=== PATIENT | male | born 1955 | race Caucasian/White ===

== ENCOUNTER 2020-10-15 06:48 | Outpatient (CLI) | payer MEDICARE ==
[~2020-10-15] VITALS: Ht 180.3 cm; Wt 75.0 kg
[2020-10-15] VITALS (8 sets, daily range): BP systolic 60–133; BP diastolic 41–80
[~2020-10-15 06:48] MED LIST: METF500T16 PO; POLY17PO29 PO; TRAM-48 PO
[2020-10-15] MEDS ORDERED: IODIXANOL 320 MG/ML 100 ML VIAL. ONE (07:38)
[2020-10-15] MEDS ORDERED: LIDOCAINE 1% PF 2 ML VIAL. ONE (07:38)
[2020-10-15 08:02] LABS: CALCIUM 9.4 mg/dL (8.5-10.1); CREATININE 1.3 mg/dL (0.7-1.3); GFR 55.8; POTASSIUM 3.9 mmol/L (3.5-5.1)
[2020-10-15 08:08] LABS: BASO # 0.1 x10^3/uL (0.0-0.2); BASO % 1 % (0-3); EOS # 0.2 x10^3/uL (0.0-0.7); EOS % 2 % (0-3); HEMATOCRIT 52.3 % (39.0-53.0); HEMOGLOBIN 17.2 g/dL (13.0-17.5); LYMPH # 2.5 x10^3/uL (1.0-4.8); LYMPH % 27 % (24-48); MEAN CORPUSCULAR HEMOGLOBIN 31 pg (25-35); MEAN CORPUSCULAR HGB CONC 33 g/dL (31-37); MEAN CORPUSCULAR VOLUME 95 fL (79-100); MONO # 0.9 x10^3/uL (0.0-1.1); MONO % 10 % (0-9); NEUT # 5.7 x10^3/uL (1.8-7.7); NEUT % 60 % (31-73); PLATELET COUNT 242 x10^3/uL (140-400); RED BLOOD COUNT 5.51 x10^6/uL (4.30-5.70); RED CELL DISTRIBUTION WIDTH 13.2 % (11.5-14.5); WHITE BLOOD COUNT 9.4 x10^3/uL (4.0-11.0)
[2020-10-15 08:17] LABS: PROTHROMBIN TIME PATIENT 17.4 SEC (11.7-14.0)
[2020-10-15] MEDS ORDERED: HEPARIN for IV BOLUS 10,000 UNIT/10 ML VIAL. ONE (08:51)
[2020-10-15] MEDS ORDERED: VERAPAMIL 5 MG/2 ML VIAL. ONE (08:51)
[2020-10-15] MEDS ORDERED: MIDAZOLAM HCL/PF 5 MG/5 ML VIAL. ONE (08:51)
[2020-10-15] MEDS ORDERED: fentaNYL PF VIAL 100 MCG/2 ML VIAL ONE (08:51)
[2020-10-15] MEDS ORDERED: NITROGLYCERIN 200 MCG/2 ML SYRINGE FOR CATH/VASC LAB. ONE (08:51)
--- NOTE | 2020-10-15 08:52 | PDOC ---
MODERATE SEDATION ASSESSMENT RISKS/ALTERNATIVES Risks/Alternatives Risks and alternatives of this type of sedation and procedure discussed with: RISK/ALTERNATIVES: Patient H & P ON CHART H & P H & P on chart and reviewed for co-morbid conditions and appropriate labs. H&P ON CHART: Yes STATUS PREG STATUS ASSESSED: N/A MEDS/ALLERGIES REVIEWED Meds/Allergies Reviewed Medications and Allergies including time and route of recently administered narcotics and sedatives. MEDS/ALLERGIES REVIEWED: Yes ASA RATING ASA RATING: III AIRWAY ASSESSMENT Airway Assessment Airway patency, oral function limitations, presence of caps, crowns, dentures, partials, and ability to extend neck assessed. AIRWAY ASSESSMENT: Yes MALLAMPATI SCORE MALLAMPATI SCORE: II PRE-SEDATION ASSESSMENT PRE-SEDATION ASSESSMENT: Yes JESÚS AVLARADO MD Oct 15, 2020 08:52
[2020-10-15] MEDS ORDERED: IODIXANOL 320 MG/ML 100 ML VIAL. IART ONE (09:15)
[2020-10-15] MEDS ORDERED: MIDAZOLAM HCL/PF 5 MG/5 ML VIAL. IV ONE (09:15)
[2020-10-15] MEDS ORDERED: NITROGLYCERIN 200 MCG/2 ML SYRINGE FOR CATH/VASC LAB. IART ONE (09:15)
[2020-10-15] MEDS ORDERED: fentaNYL PF VIAL 100 MCG/2 ML VIAL IV ONE (09:15)
[2020-10-15] MEDS ORDERED: LIDOCAINE 1% PF 2 ML VIAL. INJ ONE (09:15)
[2020-10-15] MEDS ORDERED: HEPARIN for IV BOLUS 10,000 UNIT/10 ML VIAL. IART ONE (09:15)
[2020-10-15] MEDS ORDERED: VERAPAMIL 5 MG/2 ML VIAL. IART ONE (09:15)
[2020-10-15] MEDS ORDERED: IV 1/2 NORMAL SALINE 1,000 ML IV SCH (09:30)
[2020-10-15] MEDS ORDERED: CONTRAST GIVEN. MC PRN (09:30)
--- NOTE | 2020-10-15 09:55 | CARD ---
MR#: [id number] Date of Study: 10/15/2020 Ordering Physician: JESÚS STEINER, Referring Physician: JESÚS STEINER, Tech: RT Simone(R) APPROVED REPORT Technologist: RT Simone(R) Nurse: Merline Ferrer RN Procedure(s) performed: Left heart catheterization and selective coronary angiography via right trans radial approach FL TIME: 2.5 MINS DOSE: 32 GYCM2 CONTRAST: 93 ML MODERATE SEDATION: 37 MINUTES INDICATION The indication(s) include : Cardiomyopathy with LVEF 30 to 35%. [facility] Clinical Frailty Scale [facility] Clinical Frailty Scale: Mildly Frail Heart Failure Heart Failure: Yes If Yes, Newly Diagnosed: No If Yes, HF Type: Systolic If Yes, NYHA Class: Class II CASE TECHNIQUE IV conscious sedation was used throughout procedure with appropriate monitoring and was performed in the presence of a registered nurse who was an independent trained observer other than the physician p erforming the procedure. During this case, Fluoroscopy and low osmolar contrast were used for imaging . Specimen(s) Removed: No Estimated Blood loss: 15 cc's. PROCEDURE NARRATIVE After explaining the risks, benefits and alternative options, informed consent was obtained from reji ent. Patient was brought to the cardiac Buildings And Grounds Supervisor and right wrist was prepped and draped in the usual fashion after confirming a positive modified Sage's test. Arterial access was obtained in the righ t radial artery and a 6 Kuwaiti sheath was inserted. 6 Kuwaiti Alber catheter was used to perform hemal ective angiography of the left and right coronary arteries. LVEDP and transaortic gradients were cassandra sured. Left ventriculography was not performed since recent 2D echo showed EF 30 to 35%. Patient to lerated the procedure well. Hemostasis was achieved using TR band. There were no immediate complica tions. The following findings were noted. FINDINGS 1. Hemodynamics: Left ventricular end-diastolic pressure of 19 mmHg. No pullback gradient across th e aortic valve. 2. Coronary angiography: a. The left main coronary artery arose from the left sinus of Valsalva, gave rise to the left anteri or descending and left circumflex arteries and did not show any significant stenosis. b. The left anterior descending artery showed 30% stenosis in the midsegment. c. The left circumflex artery showed 30% stenosis in the proximal segment. d. The right coronary artery was a large and dominant vessel arising from the right sinus of Valsalv a that did not show any significant stenosis. Conclusion Nonobstructive coronary artery disease Recommendations Optimization of medical therapy for nonischemic cardiomyopathy Plan for outpatient cardioversion for atrial fibrillation Repeat 2D echo in 3 months after cardioversion to evaluate the need for AICD implantation Signed by : Jesús Steiner, Electronically Approved : 10/15/2020 09:54:30
[2020-10-15] MEDS ORDERED: COLL226C TP (10:15)
[2020-10-15] MEDS ORDERED: ALBU2.5V8 IH (10:30)
[2020-10-15] MEDS ORDERED: HYDR-2759 PO (10:30)
[2020-10-15] MEDS ORDERED: WARF3TAB50 PO (10:30)
[2020-10-15] MEDS ORDERED: METO-247 PO (10:30)
[2020-10-15] MEDS ORDERED: LOSA25TA PO (10:30)
[2020-10-15] MEDS ORDERED: FURO40TA4 PO (10:30)
[2020-10-15] MEDS ORDERED: POTA10TA12 PO (10:30)
[2020-10-15] MEDS ORDERED: ATOR20TA58 PO (10:30)
--- NOTE | 2020-10-15 12:20 | NUR ---
Discharge Note: [facility] Discharge instructions and discharge home medications reviewed with Patient and and a copy given. All questions have been answered and understanding verbalized. The following instructions and handouts were given: Current medication list, with what to continue and what not to continue. Moderate Sedation, Smoking Cessation, and Radial site care. Discontinued lines and drains: Left FA IV dc'd and tip intact. Patient discharged to home with via personal vehicle.
== END 2020-10-15 12:26 | disposition home or self-care (01) ==
LOC: CCL 06:48
PROVIDERS: ATTEND Internal Medicine Cardiovascular Disease
DX: I11.0 Hypertensive heart disease with heart failure (principal); I50.9 Heart failure, unspecified; E78.00 Pure hypercholesterolemia, unspecified; I48.91 Unspecified atrial fibrillation; E11.9 Type 2 diabetes mellitus without complications; J43.9 Emphysema, unspecified; G47.30 Sleep apnea, unspecified; F41.9 Anxiety disorder, unspecified; F17.210 Nicotine dependence, cigarettes, uncomplicated; Z79.01 Long term (current) use of anticoagulants; Z79.899 Other long term (current) drug therapy; Z98.890 Other specified postprocedural states; Z20.822 Contact with and (suspected) exposure to COVID-19
CPT/HCPCS: 36415; 80048; 85025; 85610; 87426; 93458; 99152; 99153; C1769; C1894; J1644; J2250; J3010; J3490; Q9967

== ENCOUNTER → 2021-01-03 | Outpatient (CLI) | payer MEDICARE ==
[2020-10-15 12:18] VITALS: BP 116/60
[~2021-01-03] MED LIST changes: +ALBU2.5V8 IH; +ATOR20TA58 PO; +CLONAZEPAM1 MG PO; +COLL226C TP; +FLUT1BLS3 IH; +FURO40TA4 PO; +GABA600T7 PO; +HYDR-2759 PO; +INSU100I49 SQ; +LOSA25TA PO; +METF10007 PO; +METO-247 PO; +NPH,100V5 SQ; +POTA10TA12 PO; +WARF3TAB50 PO
== END ==
LOC: LAB 09:47
PROVIDERS: ATTEND Internal Medicine Cardiovascular Disease
DX: Z01.812 Encounter for preprocedural laboratory examination (principal); Z20.822 Contact with and (suspected) exposure to COVID-19; I48.91 Unspecified atrial fibrillation
CPT/HCPCS: U0003; U0005

== ENCOUNTER 2021-01-04 10:34 | Day surgery (SDC) | payer MEDICARE ==
[~2021-01-04] VITALS: Ht 180.3 cm; Wt 76.3 kg
[~2021-01-04 10:34] MED LIST changes: +HYDROmorphone 2 MG/ML VIAL IVP PRN; +IV RINGERS,LACTATED 1000ML 1,000 ML IV SCH; +MORPHINE SULFATE 2 MG/ML INJ. IVP PRN; +PROCHLORPERAZINE 10 MG/2 ML VIAL. IVP PRN; +fentaNYL PF VIAL 100 MCG/2 ML VIAL IVP PRN
[2021-01-04 11:07] VITALS: BP 104/78
--- NOTE | 2021-01-04 11:13 | EKG ---
[facility] [address] [place] [address] Test Date: 2021-01-04 Test Time: 11:14:08 Pat Name: [facility] Department: Room: Gender: Doctor Naturopathic: KIRAN : 1955 Requested By: JESÚS STEINER Order Number: [id number] Reading MD: Jesús Steiner Measurements Intervals [place] Rate: 103 P: NV: QRS: 34 QRSD: 86 T: 61 QT: 330 QTc: 434 Interpretive Statements ATRIAL FIBRILLATION Electronically Signed On 01-10-2021 13:07:04 CDT by Jesús Steiner
[2021-01-04 11:32] LABS: BASO # 0.1 x10^3/uL (0.0-0.2); BASO % 1 % (0-3); EOS # 0.1 x10^3/uL (0.0-0.7); EOS % 2 % (0-3); HEMATOCRIT 46.5 % (39.0-53.0); HEMOGLOBIN 15.8 g/dL (13.0-17.5); LYMPH # 1.7 x10^3/uL (1.0-4.8); LYMPH % 22 % (24-48); MEAN CORPUSCULAR HEMOGLOBIN 32 pg (25-35); MEAN CORPUSCULAR HGB CONC 34 g/dL (31-37); MEAN CORPUSCULAR VOLUME 93 fL (79-100); MONO # 0.9 x10^3/uL (0.0-1.1); MONO % 12 % (0-9); NEUT # 4.9 x10^3/uL (1.8-7.7); NEUT % 63 % (31-73); PLATELET COUNT 197 x10^3/uL (140-400); WHITE BLOOD COUNT 7.8 x10^3/uL (4.0-11.0)
[2021-01-04 11:44] LABS: PROTHROMBIN TIME PATIENT 25.8 SEC (11.7-14.0)
[2021-01-04 11:48] LABS: CALCIUM 8.8 mg/dL (8.5-10.1); CREATININE 1.1 mg/dL (0.7-1.3); GFR 67.6; POTASSIUM 4.6 mmol/L (3.5-5.1)
[2021-01-04 11:54] LABS: ALBUMIN 4.1 g/dL (3.4-5.0); ALBUMIN/GLOBULIN RATIO 1.2 (1.0-1.7); TOTAL BILIRUBIN 1.2 mg/dL (0.2-1.0); TOTAL PROTEIN 7.6 g/dL (6.4-8.2)
[2021-01-04] MEDS ORDERED: PROPOFOL 10 MG/ML (20ML) VIAL. IV ONE (12:28)
--- NOTE | 2021-01-04 13:22 | EKG ---
[facility] [address] [place] [address] Test Date: 2021-01-04 Test Time: 13:23:16 Pat Name: [facility] Department: Room: Gender: External Auditor: SJ : 1955 Requested By: JESÚS STEINER Order Number: [id number] Reading MD: Jesús Steiner Measurements Intervals [place] Rate: 74 P: 74 PA: 202 QRS: 69 QRSD: 86 T: 72 QT: 382 QTc: 424 Interpretive Statements SINUS RHYTHM Electronically Signed On 01-10-2021 13:06:07 CDT by Jesús Steiner
[2021-01-04 13:32] VITALS: BP 101/65
--- NOTE | 2021-01-04 16:31 | PDOC4 ---
Procedure Note: Procedure Note: Procedure. Electrical cardioversion. The patient is a 65-year-old male who was brought into the hospital as an outpatient for an electrical cardioversion of atrial fibrillation. He has a h istory of atrial fibrillation which has been rate controlled and he has been on anticoagulation for greater than 2 months. Risks and benefits of the procedure were discussed with him. He gave informed consent to proceed. The anesthesiology service also reviewed the patient. The patient was then sedated to an appropriate level by the anesthesiology service. He was cardioverted from atrial fibrillation to sinus rhythm with 1 synchronized discharge of 200 J. He awoke normally from anesthesia. He remained in a sinus rhythm. Conclusion. Successful cardioversion of atrial fibrillation to a sinus rhythm. BALDO CAM MD Jan 04, 2021 16:31
== END 2021-01-04 13:45 | disposition home or self-care (01) ==
LOC: SURG 10:34
PROVIDERS: ATTEND Internal Medicine Cardiovascular Disease
DX: I48.91 Unspecified atrial fibrillation (principal); I11.0 Hypertensive heart disease with heart failure; I50.9 Heart failure, unspecified; E78.00 Pure hypercholesterolemia, unspecified; J43.9 Emphysema, unspecified; G47.30 Sleep apnea, unspecified; E11.65 Type 2 diabetes mellitus with hyperglycemia; F41.9 Anxiety disorder, unspecified; M19.90 Unspecified osteoarthritis, unspecified site; F17.210 Nicotine dependence, cigarettes, uncomplicated; Z86.73 Personal history of transient ischemic attack (TIA), and cerebral infarction without residual deficits; Z79.84 Long term (current) use of oral hypoglycemic drugs; Z79.899 Other long term (current) drug therapy; Z98.890 Other specified postprocedural states
CPT/HCPCS: 36415; 80053; 82962; 85025; 85610; 85730; 92960; 93005; J2704

== ENCOUNTER 2021-01-21 07:17 | Outpatient (CLI) | payer MEDICARE ==
[~2021-01-21] VITALS: Ht 180.3 cm; Wt 78.1 kg
[2021-01-21] VITALS (8 sets, daily range): BP systolic 90–121; BP diastolic 68–88
[~2021-01-21 07:17] MED LIST changes: -HYDROmorphone 2 MG/ML VIAL IVP PRN; -IV RINGERS,LACTATED 1000ML 1,000 ML IV SCH; -MORPHINE SULFATE 2 MG/ML INJ. IVP PRN; -PROCHLORPERAZINE 10 MG/2 ML VIAL. IVP PRN; -fentaNYL PF VIAL 100 MCG/2 ML VIAL IVP PRN
[2021-01-21] MEDS ORDERED: LIDOCAINE 1% Multi-Dose 20 ML VIAL. ONE ×2 (07:35→09:19)
[2021-01-21] MEDS ORDERED: IODIXANOL 320 MG/ML 100 ML VIAL. ONE (07:35)
[2021-01-21 08:01] LABS: HEMATOCRIT 47.2 % (39.0-53.0); HEMOGLOBIN 15.8 g/dL (13.0-17.5); RED BLOOD COUNT 5.01 x10^6/uL (4.30-5.70); RED CELL DISTRIBUTION WIDTH 15.7 % (11.5-14.5); WHITE BLOOD COUNT 9.2 x10^3/uL (4.0-11.0)
[2021-01-21] MEDS ORDERED: HEPARIN for IV BOLUS 10,000 UNIT/10 ML VIAL. ONE (08:04)
[2021-01-21] MEDS ORDERED: MIDAZOLAM HCL/PF 2 MG/2 ML VIAL. ONE ×2 (08:04→09:23)
[2021-01-21] MEDS ORDERED: fentaNYL PF VIAL 100 MCG/2 ML VIAL ONE ×2 (08:04→10:27)
[2021-01-21 08:08] LABS: CALCIUM 9.1 mg/dL (8.5-10.1); GFR 75.5; POTASSIUM 4.5 mmol/L (3.5-5.1)
[2021-01-21] MEDS ORDERED: fentaNYL PF VIAL 100 MCG/2 ML VIAL IV ONE (08:15)
[2021-01-21] MEDS ORDERED: VERAPAMIL 5 MG/2 ML VIAL. IART ONE (08:15)
[2021-01-21] MEDS ORDERED: IODIXANOL 320 MG/ML 100 ML VIAL. IART ONE (08:15)
[2021-01-21] MEDS ORDERED: MIDAZOLAM HCL/PF 2 MG/2 ML VIAL. IV ONE (08:15)
[2021-01-21] MEDS ORDERED: LIDOCAINE 1% PF 2 ML VIAL. INJ ONE (08:15)
[2021-01-21] MEDS ORDERED: NITROGLYCERIN 200 MCG/2 ML SYRINGE FOR CATH/VASC LAB. IART ONE (08:15)
[2021-01-21] MEDS ORDERED: HEPARIN for IV BOLUS 10,000 UNIT/10 ML VIAL. IART ONE (08:15)
[2021-01-21] MEDS ORDERED: VERAPAMIL 5 MG/2 ML VIAL. ONE (08:19)
[2021-01-21] MEDS ORDERED: NITROGLYCERIN 200 MCG/2 ML SYRINGE FOR CATH/VASC LAB. ONE (08:20)
[2021-01-21] MEDS ORDERED: LIDOCAINE 1% PF 2 ML VIAL. ONE (08:25)
[2021-01-21 08:32] LABS: PROTHROMBIN TIME PATIENT 13.8 SEC (11.7-14.0)
[2021-01-21] MEDS ORDERED: LIDOCAINE 1% Multi-Dose 20 ML VIAL. INJ ONE (09:30)
[2021-01-21] MEDS ORDERED: diphenhydrAMINE 50 MG/ML VIAL ONE (09:44)
[2021-01-21] MEDS ORDERED: diphenhydrAMINE 50 MG/ML VIAL IVP ONE (10:00)
[2021-01-21] MEDS ORDERED: CLOPIDOGREL BISULFATE 75 MG TABLET PO ONE (11:00)
--- NOTE | 2021-01-21 11:25 | PDOC ---
MODERATE SEDATION ASSESSMENT RISKS/ALTERNATIVES Risks/Alternatives Risks and alternatives of this type of sedation and procedure discussed with: RISK/ALTERNATIVES: Patient H & P ON CHART H & P H & P on chart and reviewed for co-morbid conditions and appropriate labs. H&P ON CHART: Yes STATUS PREG STATUS ASSESSED: N/A MEDS/ALLERGIES REVIEWED Meds/Allergies Reviewed Medications and Allergies including time and route of recently administered narcotics and sedatives. MEDS/ALLERGIES REVIEWED: Yes ASA RATING ASA RATING: III AIRWAY ASSESSMENT Airway Assessment Airway patency, oral function limitations, presence of caps, crowns, dentures, partials, and ability to extend neck assessed. AIRWAY ASSESSMENT: Yes MALLAMPATI SCORE MALLAMPATI SCORE: II PRE-SEDATION ASSESSMENT PRE-SEDATION ASSESSMENT: Yes JESÚS ALVARADO MD Jan 21, 2021 11:25
[2021-01-21] MEDS ORDERED: NITROGLYCERIN SUBLINGUAL 0.4 MG BOTTLE OF 25. SL PRN (11:30)
[2021-01-21] MEDS ORDERED: ACETAMINOPHEN 325 MG TABLET. PO PRN (11:30)
[2021-01-21] MEDS ORDERED: IV 1/2 NORMAL SALINE 1,000 ML IV SCH (11:30)
[2021-01-21] MEDS ORDERED: fentaNYL PF VIAL 100 MCG/2 ML VIAL IVP ONE (11:30)
--- NOTE | 2021-01-21 12:29 | CARD ---
MR#: [id number] Date of Study: 01/21/2021 Ordering Physician: JESÚS STEINER, Referring Physician: JESÚS STEINER, Tech: APPROVED REPORT Patient StatusOUT-PATIENT Procedure(s) performed: 1. Aortogram with bilateral lower extremity runoff 2. Successful complex CLIP WRAPPER/stents placement to long chronic total occlusion involving the left superf icial femoral artery MODERATE SEDATION TIME: 150 MINUTES FLUORO TIME: 43.7 MIN DOSE: 88.8 GYCM2 CONTRAST: 130CC VISI INDICATION FOR PROCEDURE The indication(s) include : Peripheral artery disease with claudication and abnormal arterial duplex scan. CASE TECHNIQUE After explaining the risks, benefits, and alternative options, informed consent was obtained from the patient. IV conscious sedation was used throughout procedure with appropriate monitoring and was per formed in the presence of a registered nurse who was an independent trained observer other than the aman cross performing the procedure. During this case, Fluoroscopy and low osmolar contrast were used f or imaging. Specimen(s) Removed: No Estimated Blood loss: 15 cc's. PROCEDURE NARRATIVE After explaining the risk, benefits and alternative options, informed consent was obtained for patien t. Patient was brought to the cardiac Network Systems Operator and his right wrist and right groin were prepped and draped in the usual fashion. Arterial access was obtained in the right radial artery and a 6 Qatari sheath was inserted. A 4 Qatari R2P PV multivurve catheter was then advanced under fluoroscopic guid ance and with the tip position in the distal descending aorta, aorto iliac angiography was performed. The catheter was advanced into the right common femoral artery and selective right lower extremity angiography was performed. The catheter withdrawn and advanced into the left common femoral artery a nd selective left lower extremity angiography was performed. The following findings were noted: FINDINGS 1. No significant stenosis involving the distal descending aorta 2. No significant stenosis involving bilateral common iliac arteries 3. The right external iliac artery showed 80% stenosis. The left external iliac artery showed 20% s tenosis. 4. The right superficial femoral artery showed 40% stenosis in the midsegment. The left superficial femoral artery showed 70% stenosis in the proximal segment and a long calcified 100% chronic total o cclusion involving the mid segment. There is distal reconstitution from collaterals. 5. The right popliteal artery did not show any significant stenosis. The left popliteal artery show ed 70% stenosis. There was three vessel runoff below the knee bilaterally in the proximal and mid se gments. The distal segments were not well visualized in the right leg. INTERVENTION 10 cc of 2% lidocaine was infiltrated into the skin and subcutaneous tissues of the right groin for l ocal anesthesia. Arterial access was obtained in the right common femoral artery and a 6 Qatari 45 c m destination sheath was inserted. The aortic kim was crossed using 5 Qatari crossover catheter a nd the arterial sheath was advanced and the tip was positioned in the left common femoral artery. Af ter several initial unsuccessful attempts, the long chronic total occlusion involving the left superf icial femoral artery was crossed with a 0.035 inch Glidewire with backup support from 4 Qatari angled glide catheter. The course of the wire was subintimal. Hence we decided to reenter the lumen using a stiffer wire. A 0.018 inch connect flex wire was then advanced and after few attempts, we reenter ed the lumen in the distal SFA. The lesions in the popliteal and the superficial femoral artery were then dilated with a 4.0 x 120 mm followed by 5.5 x 150 mm Barrett Tomball balloons. Follow-up angiogr aphy showed areas of dissection in the mid and distal segments of the SFA. The distal segment was tr eated with a 5.5 x 150 mm in the mid segment was treated with 5.5 x 60 mm Abrrett Supera self-expandin g stents. Follow-up angiography showed resolution of the lesions with good distal flow. Patient dung erated the procedure well. Hemostasis was achieved using Angio-Seal. There were no immediate compli cations. Conclusion 1. Severe bilateral lower extremity peripheral artery disease involving the left superficial femoral and right external iliac arteries as described above. 2. Successful complex CLIP WRAPPER/stents placement to long chronic total occlusion involving the left superf icial femoral artery. Recommendations 1. Plan for staged CLIP WRAPPER/stent placement to the right external iliac artery in 3 to 4 weeks. 2. Plavix 75 mg daily for 4 weeks and vascular risk factor modification. Signed by : Jesús Steiner, Electronically Approved : 01/21/2021 12:29:37
--- NOTE | 2021-01-21 13:06 | NUR ---
Sat patient up in bed. No bleeding at groin site, no sign of hematoma. VS stable. Will continue to monitor.
[2021-01-21] MEDS ORDERED: CLOP75TA PO (13:09)
--- NOTE | 2021-01-21 13:43 | NUR ---
Plav[facility] 75mg daily [facility]. Dressing changed, TR band removed. PIV removed. Instructions provided on site care, sedation. Patient verbalized understanding. driving home. VS stable. All belongings taken w/ patient.
[2021-01-22] MEDS ORDERED: CLOPIDOGREL BISULFATE 75 MG TABLET PO SCH (08:00)
[2021-02-26] MEDS ORDERED: LOSA25TA PO (11:29)
[2021-02-26] MEDS ORDERED: AMIO200T53 PO (11:29)
[2021-02-26] MEDS ORDERED: BUDE0.5A3 NEB (11:29)
[2021-02-26] MEDS ORDERED: METO-239 PO (11:29)
[2021-02-26] MEDS ORDERED: DIGO250T3 PO (11:29)
[2021-02-26] MEDS ORDERED: WARF3TAB50 PO (11:31)
[2021-02-26] MEDS ORDERED: CLON-77 PO (11:31)
== END 2021-01-21 14:00 | disposition home or self-care (01) ==
LOC: CCL 07:17
PROVIDERS: ATTEND Internal Medicine Cardiovascular Disease
DX: I70.213 Atherosclerosis of native arteries of extremities with intermittent claudication, bilateral legs (principal); I11.0 Hypertensive heart disease with heart failure; E78.00 Pure hypercholesterolemia, unspecified; I48.91 Unspecified atrial fibrillation; M19.90 Unspecified osteoarthritis, unspecified site; E11.9 Type 2 diabetes mellitus without complications; J43.9 Emphysema, unspecified; G47.30 Sleep apnea, unspecified; F41.9 Anxiety disorder, unspecified; F17.210 Nicotine dependence, cigarettes, uncomplicated; Z86.73 Personal history of transient ischemic attack (TIA), and cerebral infarction without residual deficits; Z79.84 Long term (current) use of oral hypoglycemic drugs; Z79.899 Other long term (current) drug therapy; Z98.890 Other specified postprocedural states
CPT/HCPCS: 36415; 37226; 75625; 75716; 80048; 85027; 85610; 87426; 99152; 99153; C1725; C1760; C1769; C1876; C1894; J1200; J1644; J2250; J3010; J3490; Q9967; G0269

== ENCOUNTER → 2021-02-18 | Outpatient (CLI) | payer MEDICARE ==
[2021-02-18] VITALS (8 sets, daily range): BP systolic 80–104; BP diastolic 62–67
[~2021-02-18] VITALS: Ht 180.3 cm; Wt 80.9 kg
[~2021-02-18] MED LIST changes: +AMIO200T53 PO; +BUDE0.5A3 NEB; +CLON-77 PO; +CLOP75TA PO; +DIGO250T3 PO; +HEPARIN for IV BOLUS 10,000 UNIT/10 ML VIAL. IART ONE; +HEPARIN for IV BOLUS 10,000 UNIT/10 ML VIAL. ONE; +IODIXANOL 320 MG/ML 100 ML VIAL. IV ONE; +IODIXANOL 320 MG/ML 100 ML VIAL. ONE; +IV 1/2 NORMAL SALINE 1,000 ML IV SCH; +LIDOCAINE 1% Multi-Dose 20 ML VIAL. ONE; +LIDOCAINE 1% PF 2 ML VIAL. INJ ONE; +LIDOCAINE 1% PF 2 ML VIAL. ONE; +LIDOCAINE 2% Multi-Dose 20 ML VIAL. IJ ONE; +METO-239 PO; +METO50TA4 PO; +MIDAZOLAM HCL/PF 2 MG/2 ML VIAL. IV ONE; +MIDAZOLAM HCL/PF 2 MG/2 ML VIAL. ONE; +NITROGLYCERIN 200 MCG/2 ML SYRINGE FOR CATH/VASC LAB. IART ONE; +NITROGLYCERIN 200 MCG/2 ML SYRINGE FOR CATH/VASC LAB. ONE; +VERAPAMIL 5 MG/2 ML VIAL. IART ONE; +VERAPAMIL 5 MG/2 ML VIAL. ONE; +fentaNYL PF VIAL 100 MCG/2 ML VIAL IV ONE; +fentaNYL PF VIAL 100 MCG/2 ML VIAL ONE
[2021-02-18 08:10] LABS: PROTHROMBIN TIME PATIENT 13.3 SEC (11.7-14.0)
--- NOTE | 2021-02-18 10:26 | CARD ---
MR#: [id number] Date of Study: 02/18/2021 Ordering Physician: JESÚS STEINER, Referring Physician: JESÚS STEINER, Tech: RT Simone(R) APPROVED REPORT Patient StatusOUT-PATIENT Faculty Neuropsychologist: RT Simone(R) Procedure(s) performed: Right Ileofemoral angiography, second order catheter placement and measuremen t of pullback gradients FL TIME: 5.6 MIN DOSE: 24 GYCM2 CONTRAST: 28 ML MODERATE SEDATION: 58 MINS INDICATION FOR PROCEDURE The indication(s) include : 65-year-old male with peripheral artery disease with claudication recentl y underwent complex EDI SPECIALIST/stents placement to chronic total occlusion involving left superficial femora l artery and also EDI SPECIALIST to the left popliteal artery. He was noted to have significant stenosis involvi ng the right external iliac artery at that time and hence presented for completion/staged EDI SPECIALIST.. CASE TECHNIQUE After explaining the risks, benefits, and alternative options, informed consent was obtained from the patient. IV conscious sedation was used throughout procedure with appropriate monitoring and was per formed in the presence of a registered nurse who was an independent trained observer other than the aman cross performing the procedure. During this case, Fluoroscopy and low osmolar contrast were used f or imaging. Specimen(s) Removed: No Estimated Blood loss: 10 cc's. PROCEDURE NARRATIVE Patient was brought to the cardiac Heavy Duty Truck Mechanic and his right wrist was prepped and draped in the usual f ashion after confirming a positive modified Sage's test. Attempts at obtaining right radial arteria l access were unsuccessful due to very small caliber vessel. Subsequently, 20 cc of 2% lidocaine was infiltrated into the skin and subcutaneous tissues of previously prepped and draped left groin for l ocal anesthesia. Arterial access was obtained in the left common femoral artery and a 6 Liberian 45 cm destination sheath was inserted. This was advanced over the aortic kim with the help of a 5 Fren ch crossover catheter and the tip was positioned in the right common iliac artery. Selective angiogr aphy showed that the previously described significant stenosis in the right external iliac artery was only about 40 to 50% severity. We decided to perform pullback gradient to make sure the stenosis no t physiologically significant. The lesion was crossed with a 0.035 inch Glidewire and a 4 Liberian ang led glide catheter was advanced over the wire and the tip was positioned in the right common femoral artery. Pullback gradient was then measured across the stenosis in the right external iliac artery. This was not significant at 10mmHg. Hence no interventions were performed. Hemostasis in the left groin was achieved using Angio-Seal. There were no immediate complications. Conclusion 40 to 50% stenosis involving the right external iliac artery without any significant pullback gradien t across the lesion. Recommendations Vascular risk factor modification including regular exercise regimen. Signed by : Jesús Steiner, Electronically Approved : 02/18/2021 10:25:48
== END | disposition home or self-care (01) ==
LOC: CCL 07:05
PROVIDERS: ATTEND Internal Medicine Cardiovascular Disease
DX: I73.9 Peripheral vascular disease, unspecified (principal); I11.0 Hypertensive heart disease with heart failure; I50.9 Heart failure, unspecified; I48.91 Unspecified atrial fibrillation; E78.00 Pure hypercholesterolemia, unspecified; J43.9 Emphysema, unspecified; E11.9 Type 2 diabetes mellitus without complications; M19.90 Unspecified osteoarthritis, unspecified site; G47.30 Sleep apnea, unspecified; F41.9 Anxiety disorder, unspecified; F17.210 Nicotine dependence, cigarettes, uncomplicated; Z86.73 Personal history of transient ischemic attack (TIA), and cerebral infarction without residual deficits; Z79.82 Long term (current) use of aspirin; Z79.01 Long term (current) use of anticoagulants; Z79.84 Long term (current) use of oral hypoglycemic drugs; Z79.899 Other long term (current) drug therapy; Z98.890 Other specified postprocedural states
CPT/HCPCS: 36246; 36415; 75710; 85610; 99152; 99153; C1760; C1769; C1894; G0269; J1644; J2250; J3010; J3490; Q9967

== ENCOUNTER 2021-02-22 18:10 | Inpatient (IN) | payer MEDICARE ==
[~2021-02-22] VITALS: Ht 170.2 cm; Wt 81.0 kg
[2021-02-22 17:45] VITALS: BP 148/79
[~2021-02-22 18:10] MED LIST changes: -AMIO200T53 PO; -BUDE0.5A3 NEB; -CLON-77 PO; -DIGO250T3 PO; -HEPARIN for IV BOLUS 10,000 UNIT/10 ML VIAL. IART ONE; -HEPARIN for IV BOLUS 10,000 UNIT/10 ML VIAL. ONE; -IODIXANOL 320 MG/ML 100 ML VIAL. IV ONE; -IODIXANOL 320 MG/ML 100 ML VIAL. ONE; -IV 1/2 NORMAL SALINE 1,000 ML IV SCH; -LIDOCAINE 1% Multi-Dose 20 ML VIAL. ONE; -LIDOCAINE 1% PF 2 ML VIAL. INJ ONE; -LIDOCAINE 1% PF 2 ML VIAL. ONE; -LIDOCAINE 2% Multi-Dose 20 ML VIAL. IJ ONE; -METO-239 PO; -METO50TA4 PO; -MIDAZOLAM HCL/PF 2 MG/2 ML VIAL. IV ONE; -MIDAZOLAM HCL/PF 2 MG/2 ML VIAL. ONE; -NITROGLYCERIN 200 MCG/2 ML SYRINGE FOR CATH/VASC LAB. IART ONE; -NITROGLYCERIN 200 MCG/2 ML SYRINGE FOR CATH/VASC LAB. ONE; -VERAPAMIL 5 MG/2 ML VIAL. IART ONE; -VERAPAMIL 5 MG/2 ML VIAL. ONE; -fentaNYL PF VIAL 100 MCG/2 ML VIAL IV ONE; -fentaNYL PF VIAL 100 MCG/2 ML VIAL ONE
[2021-02-22] MEDS ORDERED: AMIODARONE 450 MG in IV DEXTROSE 5% 250 ML IV PRN (18:30)
--- NOTE | 2021-02-22 18:33 | PDOC ---
PROGRESS NOTES Date of Service DATE: 02/22/21 TIME: 18:25 Subjective Subjective Patient seen and examined Physical Exam Abdomen: Normal bowel sounds Heart: Other (irreg. irreg.) General: No acute distress Lungs: Other (mildly decreased breath sounds.) Assessment Assessment 1. Probable sepsis. Pt. transferred from [place] for progressively decreasing BP and elevated heart rate (atrial fib 130) in the setting of a cardiomyopathy. Treated with antibiotics and fluids. Heart rate improved with digoxin. Will continue treatment with close monitoring. 2. Atrial fib. Rate control as above. Warfarin. 3. Non obstructive CAD. Continuing treatment. 4. PAD. S/P interventions with follow up scheduled. 5. NICM. EF of 30-35%. 6. HLD. Statin. 7. DM. Continuing present treatment. 8. COPD. Comment Review of Relevant I have reviewed the following items shady (where applicable) has been applied. Medications Active Scripts Active Miralax (Polyethylene Glycol 3350) 17 Gm Powd.pack 1 Packet PO DAILY Reported Clopidogrel (Clopidogrel Bisulfate) 75 Mg Tablet 1 Tab PO DAILY Novolin R Flexpen (Insulin Regular, Human) 100 Unit/1 Ml Insuln.pen 0 SQ PRN BFRMEAL PRN Novolin N (Nph, Human Insulin Isophane) 100 Unit/1 Ml Vial 8 Unit SQ HS Metformin Hcl 1,000 Mg Tablet 1,000 Mg PO BIDWMEALS Clonazepam 1 Mg Tablet 0.5 Mg PO PRN BID PRN Gabapentin 600 Mg Tablet 300 Mg PO BID Warfarin Sodium 3 Mg Tablet 3 Mg PO UD Trelegy Ellipta 100-62.5-25 (Fluticasone/Umeclidin/Vilanter) 1 Each Blst.w.dev 1 Each IH DAILY Proair Hfa Inhaler (Albuterol Sulfate) 8.5 Gm Hfa.aer.ad 2 Puff IH PRN Q4-6HRS PRN 21 Days Warfarin Sodium 3 Mg Tablet 4 Mg PO QMONFR Klor-Con 10 (Potassium Chloride) 10 Meq Tablet.er 1 Tab PO DAILY 30 Days Metoprolol Succinate ( Xl ) (Metoprolol Succinate) 100 Mg Tab.er.24h 1.5 Tab PO DAILY Furosemide 40 Mg Tablet 1 Tab PO DAILY Atorvastatin Calcium 20 Mg Tablet 20 Mg PO HS Eucerin Eczema Relief (Colloidal Oatmeal) 226 Gm Cream..g. 1 Yocasta TP DAILY 30 Days Justifications for Admission Other Justification New Afib with RVR, CAP BALDO CAM MD Feb 22, 2021 18:33
[2021-02-22] MEDS ORDERED: ALBUTEROL SULFATE 2.5 MG/3 ML NEBU. NEB PRN (18:45)
[2021-02-22] MEDS ORDERED: DEXTROSE 50% 25 GM / 50ML DISP.SYRIN. IV PRN (18:45)
[2021-02-22] MEDS ORDERED: MINERAL OIL/PETROLATUM TOPICAL CREAM 113GM JAR. TP PRN (18:45)
[2021-02-22] MEDS: NICOTINE 21MG PATCH. TD SCH (18:56)
[2021-02-22 19:30] VITALS: BP 147/81
[2021-02-22] MEDS: cefTRIAXone IV Push 1 GM VIAL. IVP SCH (19:54)
[2021-02-22] MEDS: ATORVASTATIN CALCIUM 20 MG TABLET PO SCH (19:54)
[2021-02-22] MEDS: GABAPENTIN 300 MG CAPSULE. PO SCH (19:54)
[2021-02-22] MEDS: IPRATRPIUM/ALBUTEROL 0.5/2.5MG 3 ML NEBU. NEB SCH (21:14)
[2021-02-22] MEDS: BUDESONIDE 0.5 MG/2 ML NEBU. NEB SCH (21:14)
[2021-02-22] MEDS: clonazePAM 0.5 MG TABLET PO PRN (21:34)
[2021-02-22] MEDS: ACETAMINOPHEN 500 MG TABLET PO PRN (21:34)
[2021-02-22] MEDS: INSULIN GLARGINE SYRINGE. SQ SCH (21:39)
[2021-02-22 21:40] VITALS: BP 152/71
[2021-02-22 22:40] VITALS: BP 119/70
[2021-02-22 23:22] VITALS: BP 119/70
[2021-02-22 23:40] VITALS: BP 111/59
[2021-02-23] VITALS (9 sets, daily range): BP systolic 93–173; BP diastolic 61–93
[2021-02-23 04:50] LABS: BASO % 1 % (0-3); EOS # 0.2 x10^3/uL (0.0-0.7); EOS % 2 % (0-3); HEMATOCRIT 39.9 % (39.0-53.0); HEMOGLOBIN 13.1 g/dL (13.0-17.5); LYMPH # 1.4 x10^3/uL (1.0-4.8); LYMPH % 16 % (24-48); MEAN CORPUSCULAR HEMOGLOBIN 31 pg (25-35); MEAN CORPUSCULAR HGB CONC 33 g/dL (31-37); MEAN CORPUSCULAR VOLUME 96 fL (79-100); MONO % 11 % (0-9); NEUT # 6.2 x10^3/uL (1.8-7.7); NEUT % 70 % (31-73); PLATELET COUNT 147 x10^3/uL (140-400); RED BLOOD COUNT 4.18 x10^6/uL (4.30-5.70); RED CELL DISTRIBUTION WIDTH 15.1 % (11.5-14.5); WHITE BLOOD COUNT 8.8 x10^3/uL (4.0-11.0)
[2021-02-23 05:18] LABS: ALBUMIN 3.3 g/dL (3.4-5.0); ALBUMIN/GLOBULIN RATIO 1.1 (1.0-1.7); CALCIUM 8.6 mg/dL (8.5-10.1); CREATININE 0.8 mg/dL (0.7-1.3); GFR 97.6; TOTAL BILIRUBIN 0.6 mg/dL (0.2-1.0); TOTAL PROTEIN 6.3 g/dL (6.4-8.2)
[2021-02-23] MEDS: IPRATRPIUM/ALBUTEROL 0.5/2.5MG 3 ML NEBU. NEB SCH ×4 (07:46→19:55)
[2021-02-23] MEDS: BUDESONIDE 0.5 MG/2 ML NEBU. NEB SCH ×2 (07:46→19:55)
[2021-02-23] MEDS: INSULIN LISPRO 300 UNITS/3 ML VIAL. SQ SCH ×3 (08:00→18:11)
[2021-02-23] MEDS: AZITHROMYCIN 250 MG TABLET. PO SCH (09:13)
[2021-02-23] MEDS: metFORMIN 500 MG TABLET PO SCH ×2 (09:13→17:54)
[2021-02-23] MEDS: CLOPIDOGREL BISULFATE 75 MG TABLET PO SCH (09:13)
[2021-02-23] MEDS: DIGOXIN 125 MCG TABLET. PO SCH (09:13)
[2021-02-23] MEDS: POTASSIUM CHLORIDE 10 MEQ TABLET.ER. PO SCH (09:14)
[2021-02-23] MEDS: NICOTINE 21MG PATCH. TD SCH (09:14)
[2021-02-23] MEDS: GABAPENTIN 300 MG CAPSULE. PO SCH ×3 (09:14→21:17)
[2021-02-23 12:35] LABS: PROTHROMBIN TIME PATIENT 19.3 SEC (11.7-14.0)
--- NOTE | 2021-02-23 12:50 | HP ---
DATE OF SERVICE: 02/23/2021 ADMIT DATE: 02/22/2021 HISTORY OF PRESENT ILLNESS: The patient is a 65-year-old male patient who presented to the Emergency Room on 02/20/2021 with a complaint of altered mental status and confusion. At that time, he was also found to be in atrial fibrillation with rapid ventricular response and he was seen in consultation by the Cardiology team and the patient was found to be hypotensive and as he is not responding to metoprolol, digoxin and amiodarone, a decision was made to transfer him to [facility] for further evaluation and possible MARIA ISABEL and cardioversion. When I saw him today, he continued to be in atrial fibrillation with rapid ventricular response. He did complain of mild discomfort of his chest. Denied any other complaint. PAST MEDICAL HISTORY: 1. Significant for atrial fibrillation with rapid ventricular response. 2. Coronary artery disease that is nonobstructive. 3. Nonischemic cardiomyopathy with an ejection fraction of 30-35%. 4. Chronic systolic congestive heart failure. 5. Hypertension; however, he is actually hypotensive. 6. Hyperlipidemia. 7. Type 2 diabetes mellitus, seems to be reasonably controlled. 8. Peripheral arterial disease, status post stent deployment to the left superficial femoral artery. 9. Obstructive sleep apnea. 10. Chronic obstructive pulmonary disease, emphysema and bronchiectasis. 11. The patient continued to smoke heavily. PAST SURGICAL HISTORY: Significant for left lower extremity percutaneous transluminal angioplasty and stent deployment to the left superficial femoral artery. FAMILY HISTORY: Positive for hypertension. SOCIAL HISTORY: He lives with his . He continued to smoke a pack a day, does not drink alcohol or recreational drugs. REVIEW OF SYSTEMS: As per history of present illness. ALLERGIES: He has no known drug allergies. MEDICATIONS: He is currently on following medication: He is on Coumadin 7.5 mg once a day. He is on amiodarone drip as per Cardiology recommendation. He is on nicotine transdermal patch 21 mg once a day, azithromycin 250 mg once a day, digoxin 250 mcg once a day, potassium chloride 10 mEq once a day, atorvastatin 20 mg at bedtime. He is on Plavix 75 mg once a day. He is also on budesonide, Pulmicort 0.5 mg 3 mL by nebulizer twice a day, DuoNeb 3 mL 4 times a day, ceftriaxone 1 gram IV daily, metformin 1000 mg twice a day, albuterol sulfate 2.5 mg by nebulizer every 6 hours, gabapentin 300 mg 3 times a day, clonazepam 0.5 mg twice a day. He is on Lantus insulin 8 units at bedtime and insulin sliding scale before meals. PHYSICAL EXAMINATION: GENERAL: When I examined him this morning, he was resting slightly propped up in bed, in no apparent respiratory distress. There was no pallor, jaundice, cyanosis or thyromegaly. No jugular venous distention. No lower limb edema. VITAL SIGNS: His heart rate was 120-140, irregularly irregular, blood pressure was 141/83, temperature 97.8, respiratory rate was 22 and oxygen saturation was 98% on room air. HEAD, EYES, EARS, NOSE, AND THROAT: Normocephalic, atraumatic. NECK: Supple. HEART: Showed normal first and second heart sounds. No gallop, rub or murmur. CHEST: Clear to auscultation, no crepitation or rhonchi. ABDOMEN: Distended, soft, nontender. NEUROLOGIC: He was grossly intact. LABORATORY DATA: His lab work this morning showed a serum sodium of 141, potassium 4, chloride 103, bicarbonate 28, anion gap of 10, BUN 13, creatinine 0.8, estimated GFR was 97 mL per minute. His glucose 180, calcium was 8.6. Total bilirubin, AST, ALT, alkaline phosphatase were normal. Total protein was 6.3, albumin 3.3. His white cell count was 8800, hemoglobin 13, hematocrit 39, MCV 96 and platelet count of 147,000 with normal manual differential. ASSESSMENT AND PLAN: In summary, this is a 65-year-old male patient who was transferred from [facility], where he was admitted with altered mental status and was found to be hypotensive. He also was in atrial fibrillation with rapid ventricular response. He was treated with IV antibiotic, IV fluid as well as digoxin, beta corwin and finally amiodarone without much improvement. The patient has multiple other medical problems including peripheral arterial disease, nonobstructive coronary artery disease, nonischemic cardiomyopathy, hyperlipidemia, type 2 diabetes mellitus and chronic obstructive pulmonary disease. My plan is to continue with IV antibiotic. Continue with digoxin and amiodarone drip. We will continue with Coumadin and will check his PT/INR and ____ INR of 2.5. AMM/SAMSON DR: Joe TID: [id number]
[2021-02-23] MEDS: AMIODARONE HCL 200 MG TABLET. PO SCH ×2 (13:28→21:17)
--- NOTE | 2021-02-23 13:41 | PDOC ---
PROGRESS NOTES Date of Service DATE: 02/23/21 TIME: 13:39 Subjective Subjective Patient seen and examined Objective Objective Vital Signs Date Time Temp Pulse Resp B/P (MAP) Pulse Ox O2 Delivery O2 Flow Rate FiO2 02/23/21 13:28 129 02/23/21 11:44 100 Room Air 02/23/21 11:06 97.8 22 141/83 (102) 97.8 Intake and Output 02/23/21 07:00 Intake Total 60 ml Balance 60 ml Intake Oral 60 ml # Voids 3 Physical Exam Abdomen: Normal bowel sounds Heart: Other (irregularly irregular rhythm) General: mild distress Lungs: Other (Mildly decreased breath sounds) Assessment Assessment 1. Probable sepsis. Pt. transferred from [place] for progressively decreasing BP and elevated heart rate (atrial fib 130) in the setting of a cardiomyopathy. Treated with antibiotics and fluids. Blood pressure and heart rate have improved. We will continue close monitoring. 2. Atrial fib. Rate control as above. Warfarin. 3. Non obstructive CAD. Continuing treatment. 4. PAD. S/P interventions with follow up scheduled. 5. NICM. EF of 30-35%. Continuing baseline medications. 6. HLD. Statin. 7. DM. Continuing present treatment. 8. COPD. Comment Review of Relevant I have reviewed the following items shady (where applicable) has been applied. Labs Laboratory Tests Test 02/22/21 20:39 02/23/21 03:45 02/23/21 07:27 02/23/21 10:40 Glucose (Fingerstick) 242 mg/dL (70-99) 158 mg/dL (70-99) 196 mg/dL (70-99) White Blood Count 8.8 x10^3/uL (4.0-11.0) Red Blood Count 4.18 x10^6/uL (4.30-5.70) Hemoglobin 13.1 g/dL (13.0-17.5) Hematocrit 39.9 % (39.0-53.0) Mean Corpuscular Volume 96 fL (79-100) Mean Corpuscular Hemoglobin 31 pg (25-35) Mean Corpuscular Hemoglobin Concent 33 g/dL (31-37) Red Cell Distribution Width 15.1 % (11.5-14.5) Platelet Count 147 x10^3/uL (140-400) Neutrophils (%) (Auto) 70 % (31-73) Lymphocytes (%) (Auto) 16 % (24-48) Monocytes (%) (Auto) 11 % (0-9) Eosinophils (%) (Auto) 2 % (0-3) Basophils (%) (Auto) 1 % (0-3) Neutrophils # (Auto) 6.2 x10^3/uL (1.8-7.7) Lymphocytes # (Auto) 1.4 x10^3/uL (1.0-4.8) Monocytes # (Auto) 1.0 x10^3/uL (0.0-1.1) Eosinophils # (Auto) 0.2 x10^3/uL (0.0-0.7) Basophils # (Auto) 0.0 x10^3/uL (0.0-0.2) Sodium Level 141 mmol/L (136-145) Potassium Level 4.0 mmol/L (3.5-5.1) Chloride Level 103 mmol/L (98-107) Carbon Dioxide Level 28 mmol/L (21-32) Anion Gap 10 (6-14) Blood Urea Nitrogen 13 mg/dL (8-26) Creatinine 0.8 mg/dL (0.7-1.3) Estimated GFR (Cockcroft-Gault) 97.6 BUN/Creatinine Ratio 16 (6-20) Glucose Level 180 mg/dL (70-99) Calcium Level 8.6 mg/dL (8.5-10.1) Total Bilirubin 0.6 mg/dL (0.2-1.0) Aspartate Amino Transf (AST/SGOT) 10 U/L (15-37) Alanine Aminotransferase (ALT/SGPT) 21 U/L (16-63) Alkaline Phosphatase 101 U/L (46-116) Total Protein 6.3 g/dL (6.4-8.2) Albumin 3.3 g/dL (3.4-5.0) Albumin/Globulin Ratio 1.1 (1.0-1.7) Test 02/23/21 12:10 Prothrombin Time 19.3 SEC (11.7-14.0) Prothromb Time International Ratio 1.6 (0.8-1.1) Laboratory Tests Test 02/22/21 20:39 02/23/21 03:45 02/23/21 07:27 02/23/21 10:40 Glucose (Fingerstick) 242 mg/dL (70-99) 158 mg/dL (70-99) 196 mg/dL (70-99) White Blood Count 8.8 x10^3/uL (4.0-11.0) Red Blood Count 4.18 x10^6/uL (4.30-5.70) Hemoglobin 13.1 g/dL (13.0-17.5) Hematocrit 39.9 % (39.0-53.0) Mean Corpuscular Volume 96 fL (79-100) Mean Corpuscular Hemoglobin 31 pg (25-35) Mean Corpuscular Hemoglobin Concent 33 g/dL (31-37) Red Cell Distribution Width 15.1 % (11.5-14.5) Platelet Count 147 x10^3/uL (140-400) Neutrophils (%) (Auto) 70 % (31-73) Lymphocytes (%) (Auto) 16 % (24-48) Monocytes (%) (Auto) 11 % (0-9) Eosinophils (%) (Auto) 2 % (0-3) Basophils (%) (Auto) 1 % (0-3) Neutrophils # (Auto) 6.2 x10^3/uL (1.8-7.7) Lymphocytes # (Auto) 1.4 x10^3/uL (1.0-4.8) Monocytes # (Auto) 1.0 x10^3/uL (0.0-1.1) Eosinophils # (Auto) 0.2 x10^3/uL (0.0-0.7) Basophils # (Auto) 0.0 x10^3/uL (0.0-0.2) Sodium Level 141 mmol/L (136-145) Potassium Level 4.0 mmol/L (3.5-5.1) Chloride Level 103 mmol/L (98-107) Carbon Dioxide Level 28 mmol/L (21-32) Anion Gap 10 (6-14) Blood Urea Nitrogen 13 mg/dL (8-26) Creatinine 0.8 mg/dL (0.7-1.3) Estimated GFR (Cockcroft-Gault) 97.6 BUN/Creatinine Ratio 16 (6-20) Glucose Level 180 mg/dL (70-99) Calcium Level 8.6 mg/dL (8.5-10.1) Total Bilirubin 0.6 mg/dL (0.2-1.0) Aspartate Amino Transf (AST/SGOT) 10 U/L (15-37) Alanine Aminotransferase (ALT/SGPT) 21 U/L (16-63) Alkaline Phosphatase 101 U/L (46-116) Total Protein 6.3 g/dL (6.4-8.2) Albumin 3.3 g/dL (3.4-5.0) Albumin/Globulin Ratio 1.1 (1.0-1.7) Test 02/23/21 12:10 Prothrombin Time 19.3 SEC (11.7-14.0) Prothromb Time International Ratio 1.6 (0.8-1.1) Medications Current Medications Amiodarone HCl 450 mg/Dextrose 259 ml @ 0 mls/hr CONT PRN IV SEE I/O RECORD Last administered on 02/22/21at 21:15; Start 02/22/21 at 18:30; Stop 02/23/21 at 18:27 Albuterol Sulfate (Ventolin Neb Soln) 2.5 mg PRN Q6HRS PRN NEB SHORTNESS OF BREATH; Start 02/22/21 at 18:45 Atorvastatin Calcium (Lipitor) 20 mg QHS PO Last administered on 02/22/21at 19:54; Start 02/22/21 at 21:00 Azithromycin (Zithromax) 250 mg DAILY PO Last administered on 02/23/21at 09:13; Start 02/23/21 at 09:00 Budesonide (Pulmicort) 0.5 mg RTBID NEB Last administered on 02/23/21at 07:46; Start 02/22/21 at 20:00 Clopidogrel Bisulfate (Plavix) 75 mg DAILYWBKFT PO Last administered on 02/23/21at 09:13; Start 02/23/21 at 08:00 Digoxin (Lanoxin) 250 mcg DAILY PO Last administered on 02/23/21at 09:13; Start 02/23/21 at 09:00 Gabapentin (Neurontin) 300 mg TID PO Last administered on 02/23/21at 13:28; Start 02/22/21 at 21:00 Insulin Glargine (Lantus Syringe) 8 unit QHS SQ Last administered on 02/22/21 21:39; Start 02/22/21 at 21:00 Insulin Human Lispro (HumaLOG) 0-7 UNITS TIDWMEALS SQ Last administered on 02/23/21 13:38; Start 02/23/21 at 08:00 Dextrose (Dextrose 50%-Water Syringe) 12.5 gm PRN Q15MIN PRN IV SEE COMMENTS; Start 02/22/21 at 18:45 Albuterol/ Ipratropium (Duoneb) 3 ml RTQID NEB Last administered on 02/23/21at 11:36; Start 02/22/21 at 20:00 Multi-Ingredient Ointment (Hydrocerin, Eucerin Cream) 1 yocasta PRN Q1HR PRN TP DRY SKIN / SCALING; Start 02/22/21 at 18:45 Nicotine (Nicoderm Cq 21mg) 1 patch DAILY TD Last administered on 02/23/21 09:14; Start 02/22/21 at 19:00 Potassium Chloride (Klor-Con) 10 meq DAILYWBKFT PO Last administered on 02/23/21at 09:14; Start 02/23/21 at 08:00 Warfarin Sodium (Coumadin Per Pharmacy) 1 each PRN DAILY PRN MC SEE COMMENTS; Start 02/22/21 at 18:45 Ceftriaxone Sodium (Rocephin) 1 gm Q24H IVP Last administered on 02/22/21at 19:54; Start 02/22/21 at 19:00 Clonazepam (KlonoPIN) 0.5 mg PRN Q6HRS PRN PO ANXIETY / AGITATION Last administered on 02/22/21 21:34; Start 02/22/21 at 18:45 Metformin HCl (Glucophage) 1,000 mg BIDWMEALS PO Last administered on 02/23/21at 09:13; Start 02/23/21 at 08:00 Acetaminophen (Tylenol) 1,000 mg PRN Q6HRS PRN PO MILD PAIN 1-3 Last administered on 02/22/21 21:34; Start 02/22/21 at 21:15 Amiodarone HCl (Cordarone) 400 mg BID PO Last administered on 02/23/21 13:28; Start 02/23/21 at 13:15 Active Scripts Active Miralax (Polyethylene Glycol 3350) 17 Gm Powd.pack 1 Packet PO DAILY Reported Clopidogrel (Clopidogrel Bisulfate) 75 Mg Tablet 1 Tab PO DAILY Novolin R Flexpen (Insulin Regular, Human) 100 Unit/1 Ml Insuln.pen 0 SQ PRN BFRMEAL PRN Novolin N (Nph, Human Insulin Isophane) 100 Unit/1 Ml Vial 8 Unit SQ HS Metformin Hcl 1,000 Mg Tablet 1,000 Mg PO BIDWMEALS Clonazepam 1 Mg Tablet 0.5 Mg PO PRN BID PRN Gabapentin 600 Mg Tablet 300 Mg PO BID Warfarin Sodium 3 Mg Tablet 3 Mg PO UD Trelegy Ellipta 100-62.5-25 (Fluticasone/Umeclidin/Vilanter) 1 Each Blst.w.dev 1 Each IH DAILY Proair Hfa Inhaler (Albuterol Sulfate) 8.5 Gm Hfa.aer.ad 2 Puff IH PRN Q4-6HRS PRN 21 Days Warfarin Sodium 3 Mg Tablet 4 Mg PO QMONFR Klor-Con 10 (Potassium Chloride) 10 Meq Tablet.er 1 Tab PO DAILY 30 Days Metoprolol Succinate ( Xl ) (Metoprolol Succinate) 100 Mg Tab.er.24h 1.5 Tab PO DAILY Furosemide 40 Mg Tablet 1 Tab PO DAILY Atorvastatin Calcium 20 Mg Tablet 20 Mg PO HS Eucerin Eczema Relief (Colloidal Oatmeal) 226 Gm Cream..g. 1 Yocasta TP DAILY 30 Days Vitals/I & O Vital Sign - Last 24 Hours 02/22/21 02/22/21 02/22/21 02/22/21 17:45 18:00 19:30 20:00 Temp 97.5 98.0 97.5 98.0 Pulse 142 108 Resp 20 21 B/P (MAP) 148/79 (102) 147/81 (103) Pulse Ox 99 98 O2 Delivery Room Air Room Air Room Air Room Air 02/22/21 02/22/21 02/22/21 02/22/21 21:17 21:40 23:22 23:40 Temp 98.0 98.0 Pulse 135 125 105 Resp 20 B/P (MAP) 152/71 (98) 119/70 (86) 111/59 (76) Pulse Ox 96 93 O2 Delivery Room Air Room Air 02/23/21 02/23/21 02/23/21 02/23/21 00:40 01:40 03:30 04:48 Pulse 108 133 106 100 Resp 20 B/P (MAP) 93/61 (72) 108/74 (85) 101/67 (78) 119/74 (89) Pulse Ox 97 O2 Delivery Room Air 02/23/21 02/23/21 02/23/21 02/23/21 07:00 07:48 09:13 11:06 Temp 97.5 97.8 97.5 97.8 Pulse 90 123 110 Resp 20 22 B/P (MAP) 121/77 (92) 141/83 (102) Pulse Ox 95 100 98 O2 Delivery Room Air Room Air Room Air 02/23/21 02/23/21 11:44 13:28 Pulse 129 Pulse Ox 100 O2 Delivery Room Air Intake and Output 02/22/21 02/22/21 02/23/21 15:00 23:00 07:00 Intake Total 60 ml Balance 60 ml Justifications for Admission Other Justification New Afib with RVR, CAP BALDO CAM MD Feb 23, 2021 13:41
--- NOTE | 2021-02-23 14:00 | NUR ---
Nursing: Hourly vital signs printed and placed in paper chart.
--- NOTE | 2021-02-23 14:16 | NUR ---
Pharmacy Warfarin Dosing Note S:Pharmacy consulted to assist with anticoagulation therapy started with target INR: 2 -3 O:MIHIR LOVELACE is a 65 year old M with Atrial Fibrillation LABS: Last INR: 1.6 Last HGB: Last HCT: Last PLT: Last dose of given on at Previous Regimen: Vitamin K given: N Drug Interaction Changes: Ongoing Drug Interactions: A:INR of 1.6 is below desired range. Target range for this patient is: 2 -3 P: Warfarin dose: 5 mg Today at 1600 Bridge Therapy: Next INR due IN AM Pharmacy anticoagulation service will continue to follow. GUNNAR SHAFER FORMERLY [facility], 02/23/21 [id number]
[2021-02-23] MEDS ORDERED: WARFARIN 5 MG TABLET. PO ONE (16:00)
[2021-02-23] MEDS ORDERED: WARFARIN 3 MG TABLET. PO ONE (16:00)
--- NOTE | 2021-02-23 16:00 | NUR ---
Nursing: Heart rate 120bpm on average most of the day. Dr. Fuentes on unit and notified. Heart rate increased to 140bmp with activity and ambulation to the bathroom.
[2021-02-23] MEDS: cefTRIAXone IV Push 1 GM VIAL. IVP SCH (17:56)
[2021-02-23] MEDS: INSULIN GLARGINE SYRINGE. SQ SCH (21:04)
[2021-02-23] MEDS: ATORVASTATIN CALCIUM 20 MG TABLET PO SCH (21:17)
[2021-02-23] MEDS: clonazePAM 0.5 MG TABLET PO PRN (21:18)
[2021-02-23] MEDS: ACETAMINOPHEN 500 MG TABLET PO PRN (21:18)
[2021-02-24 03:30] VITALS: BP 120/69
[2021-02-24] MEDS: clonazePAM 0.5 MG TABLET PO PRN (04:16)
[2021-02-24 05:17] LABS: PROTHROMBIN TIME PATIENT 22.1 SEC (11.7-14.0)
[2021-02-24] MEDS: IPRATRPIUM/ALBUTEROL 0.5/2.5MG 3 ML NEBU. NEB SCH ×4 (06:18→19:50)
[2021-02-24] MEDS: BUDESONIDE 0.5 MG/2 ML NEBU. NEB SCH ×2 (06:19→19:50)
[2021-02-24 06:44] VITALS: BP 115/74
[2021-02-24] MEDS: INSULIN LISPRO 300 UNITS/3 ML VIAL. SQ SCH ×3 (07:40→16:23)
[2021-02-24] MEDS: CLOPIDOGREL BISULFATE 75 MG TABLET PO SCH (08:17)
[2021-02-24] MEDS: POTASSIUM CHLORIDE 10 MEQ TABLET.ER. PO SCH (08:17)
[2021-02-24] MEDS: metFORMIN 500 MG TABLET PO SCH ×2 (08:17→16:25)
[2021-02-24] MEDS: DIGOXIN 125 MCG TABLET. PO SCH (08:18)
[2021-02-24] MEDS: AZITHROMYCIN 250 MG TABLET. PO SCH (08:18)
[2021-02-24] MEDS: GABAPENTIN 300 MG CAPSULE. PO SCH ×3 (08:18→21:26)
[2021-02-24] MEDS: AMIODARONE HCL 200 MG TABLET. PO SCH ×2 (08:18→21:26)
[2021-02-24] MEDS: NICOTINE 21MG PATCH. TD SCH (08:19)
--- NOTE | 2021-02-24 10:37 | PN ---
DATE: 02/24/2021 SUBJECTIVE: The patient is resting, slightly propped up in bed, in no apparent distress, awake, alert. On questioning him, he did complain of having tremors and shaking, although his blood sugar is normal. He did have a breathing treatment and probably this is tremors induced by bronchodilators. His heart rate continued to be suboptimally controlled despite being on digoxin and amiodarone. PHYSICAL EXAMINATION: GENERAL: When I examined him today, he looked well and was clearly in no apparent respiratory distress. There is no pallor, jaundice, cyanosis or thyromegaly. No jugular venous distention. No limb edema. VITAL SIGNS: His heart rate was 117, blood pressure was 115/74, temperature was 98.1, respiratory rate was 20, and oxygen saturation was 97%. HEAD, EYES, EARS, NOSE, AND THROAT: Normocephalic, atraumatic. NECK: Supple. HEART: Showed normal first and second heart sounds. No gallop or murmur. CHEST: Clear to auscultation. No crepitation or rhonchi. ABDOMEN: Distended, soft, nontender. NEUROLOGIC: He was grossly intact. His intake over the last 24 hours and output are incompletely recorded. LABORATORY DATA: He has no lab work done this morning; however, his chemistry and CBC were within normal range. His prothrombin time was 22.1, INR of 2, which is well within therapeutic range. ASSESSMENT: 1. Altered mental status, has resolved. He is now more awake, alert. 2. Hypotension, likely due to sepsis. 3. Atrial fibrillation with rapid ventricular response. 4. Coronary artery disease that is nonobstructive. 5. Nonischemic cardiomyopathy and ejection fraction of 30%-35%. 6. Chronic systolic congestive heart failure. 7. Hypertension, however, the patient is actually hypotensive. 8. Hyperlipidemia. 9. Type 2 diabetes mellitus that seems to be reasonably controlled. 10. Peripheral arterial disease, status post stent deployment to the left superficial femoral artery. 11. Obstructive sleep apnea. 12. Chronic obstructive pulmonary disease, emphysema and bronchiectasis. 13. The patient continued to smoke heavily. PLAN: To obviously continue with amiodarone 400 mg twice a day. Continue with digoxin 250 mcg once a day. Continue with warfarin with pharmacy adjusting the dose. Continue with Plavix and aspirin. Continue with IV antibiotics. BASIL DR: Joe TID: [id number]
[2021-02-24 11:00] VITALS: BP 153/81
--- NOTE | 2021-02-24 12:50 | PDOC ---
PROGRESS NOTES Date of Service DATE: 02/24/21 TIME: 12:48 Subjective Subjective Patient seen and examined Objective Objective Vital Signs Date Time Temp Pulse Resp B/P (MAP) Pulse Ox O2 Delivery O2 Flow Rate FiO2 02/24/21 11:00 96.6 103 20 153/81 (105) 96 Room Air 96.6 Intake and Output 02/24/21 07:00 Intake Total 1450 ml Output Total 600 ml Balance 850 ml Intake Oral 1450 ml Output Urine Total 600 ml # Voids 1 Physical Exam Abdomen: Normal bowel sounds Heart: Regular rate General: mild distress Lungs: Other (Mildly decreased breath sound) Assessment Assessment 1. Possible sepsis. Pt. transferred from [place] for progressively decreasing BP and elevated heart rate (atrial fib 130) in the setting of a cardiomyopathy. Treated with antibiotics and fluids. Blood pressure and heart rate have continued to improve. Continue present treatment. 2. Atrial fib. Rate control as above. Warfarin. 3. Non obstructive CAD. Continuing treatment. 4. PAD. S/P interventions with follow up scheduled. 5. NICM. EF of 30-35%. Continuing baseline medications. 6. HLD. Statin. 7. DM. Continuing present treatment. 8. COPD. Comment Review of Relevant I have reviewed the following items shady (where applicable) has been applied. Labs Laboratory Tests Test 02/22/21 20:39 02/23/21 03:45 02/23/21 07:27 02/23/21 10:40 Glucose (Fingerstick) 242 mg/dL (70-99) 158 mg/dL (70-99) 196 mg/dL (70-99) White Blood Count 8.8 x10^3/uL (4.0-11.0) Red Blood Count 4.18 x10^6/uL (4.30-5.70) Hemoglobin 13.1 g/dL (13.0-17.5) Hematocrit 39.9 % (39.0-53.0) Mean Corpuscular Volume 96 fL (79-100) Mean Corpuscular Hemoglobin 31 pg (25-35) Mean Corpuscular Hemoglobin Concent 33 g/dL (31-37) Red Cell Distribution Width 15.1 % (11.5-14.5) Platelet Count 147 x10^3/uL (140-400) Neutrophils (%) (Auto) 70 % (31-73) Lymphocytes (%) (Auto) 16 % (24-48) Monocytes (%) (Auto) 11 % (0-9) Eosinophils (%) (Auto) 2 % (0-3) Basophils (%) (Auto) 1 % (0-3) Neutrophils # (Auto) 6.2 x10^3/uL (1.8-7.7) Lymphocytes # (Auto) 1.4 x10^3/uL (1.0-4.8) Monocytes # (Auto) 1.0 x10^3/uL (0.0-1.1) Eosinophils # (Auto) 0.2 x10^3/uL (0.0-0.7) Basophils # (Auto) 0.0 x10^3/uL (0.0-0.2) Sodium Level 141 mmol/L (136-145) Potassium Level 4.0 mmol/L (3.5-5.1) Chloride Level 103 mmol/L (98-107) Carbon Dioxide Level 28 mmol/L (21-32) Anion Gap 10 (6-14) Blood Urea Nitrogen 13 mg/dL (8-26) Creatinine 0.8 mg/dL (0.7-1.3) Estimated GFR (Cockcroft-Gault) 97.6 BUN/Creatinine Ratio 16 (6-20) Glucose Level 180 mg/dL (70-99) Calcium Level 8.6 mg/dL (8.5-10.1) Total Bilirubin 0.6 mg/dL (0.2-1.0) Aspartate Amino Transf (AST/SGOT) 10 U/L (15-37) Alanine Aminotransferase (ALT/SGPT) 21 U/L (16-63) Alkaline Phosphatase 101 U/L (46-116) Total Protein 6.3 g/dL (6.4-8.2) Albumin 3.3 g/dL (3.4-5.0) Albumin/Globulin Ratio 1.1 (1.0-1.7) Test 02/23/21 12:10 02/23/21 17:02 02/23/21 20:38 02/24/21 04:30 Prothrombin Time 19.3 SEC (11.7-14.0) 22.1 SEC (11.7-14.0) Prothromb Time International Ratio 1.6 (0.8-1.1) 2.0 (0.8-1.1) Glucose (Fingerstick) 157 mg/dL (70-99) 106 mg/dL (70-99) Test 02/24/21 07:21 02/24/21 11:45 Glucose (Fingerstick) 122 mg/dL (70-99) 149 mg/dL (70-99) Laboratory Tests Test 02/23/21 17:02 02/23/21 20:38 02/24/21 04:30 02/24/21 07:21 Glucose (Fingerstick) 157 mg/dL (70-99) 106 mg/dL (70-99) 122 mg/dL (70-99) Prothrombin Time 22.1 SEC (11.7-14.0) Prothromb Time International Ratio 2.0 (0.8-1.1) Test 02/24/21 11:45 Glucose (Fingerstick) 149 mg/dL (70-99) Medications Current Medications Amiodarone HCl 450 mg/Dextrose 259 ml @ 0 mls/hr CONT PRN IV SEE I/O RECORD Last administered on 02/22/21at 21:15; Start 02/22/21 at 18:30; Stop 02/23/21 at 18:27; Status DC Albuterol Sulfate (Ventolin Neb Soln) 2.5 mg PRN Q6HRS PRN NEB SHORTNESS OF BREATH; Start 02/22/21 at 18:45 Atorvastatin Calcium (Lipitor) 20 mg QHS PO Last administered on 02/23/21at 21:17; Start 02/22/21 at 21:00 Azithromycin (Zithromax) 250 mg DAILY PO Last administered on 02/24/21at 08:18; Start 02/23/21 at 09:00 Budesonide (Pulmicort) 0.5 mg RTBID NEB Last administered on 02/24/21at 06:19; Start 02/22/21 at 20:00 Clopidogrel Bisulfate (Plavix) 75 mg DAILYWBKFT PO Last administered on 02/24/21at 08:17; Start 02/23/21 at 08:00 Digoxin (Lanoxin) 250 mcg DAILY PO Last administered on 02/24/21at 08:18; Start 02/23/21 at 09:00 Gabapentin (Neurontin) 300 mg TID PO Last administered on 02/24/21at 08:18; Start 02/22/21 at 21:00 Insulin Glargine (Lantus Syringe) 8 unit QHS SQ Last administered on 02/23/21at 21:04; Start 02/22/21 at 21:00 Insulin Human Lispro (HumaLOG) 0-7 UNITS TIDWMEALS SQ Last administered on 02/23/21at 18:11; Start 02/23/21 at 08:00 Dextrose (Dextrose 50%-Water Syringe) 12.5 gm PRN Q15MIN PRN IV SEE COMMENTS; Start 02/22/21 at 18:45 Albuterol/ Ipratropium (Duoneb) 3 ml RTQID NEB Last administered on 02/24/21at 10:53; Start 02/22/21 at 20:00 Multi-Ingredient Ointment (Hydrocerin, Eucerin Cream) 1 yocasta PRN Q1HR PRN TP DRY SKIN / SCALING; Start 02/22/21 at 18:45 Nicotine (Nicoderm Cq 21mg) 1 patch DAILY TD Last administered on 02/24/21at 08:19; Start 02/22/21 at 19:00 Potassium Chloride (Klor-Con) 10 meq DAILYWBKFT PO Last administered on 02/24/21at 08:17; Start 02/23/21 at 08:00 Warfarin Sodium (Coumadin Per Pharmacy) 1 each PRN DAILY PRN MC SEE COMMENTS Last administered on 02/24/21at 07:29; Start 02/22/21 at 18:45 Ceftriaxone Sodium (Rocephin) 1 gm Q24H IVP Last administered on 02/23/21at 17:56; Start 02/22/21 at 19:00 Clonazepam (KlonoPIN) 0.5 mg PRN Q6HRS PRN PO ANXIETY / AGITATION Last administered on 02/24/21at 04:16; Start 02/22/21 at 18:45 Metformin HCl (Glucophage) 1,000 mg BIDWMEALS PO Last administered on 02/24/21at 08:17; Start 02/23/21 at 08:00 Acetaminophen (Tylenol) 1,000 mg PRN Q6HRS PRN PO MILD PAIN 1-3 Last administered on 02/23/21at 21:18; Start 02/22/21 at 21:15 Amiodarone HCl (Cordarone) 400 mg BID PO Last administered on 02/24/21at 08:18; Start 02/23/21 at 13:15 Warfarin Sodium (Coumadin) 5 mg 1X WARF ONCE PO ; Start 02/23/21 at 16:00; Stop 02/23/21 at 15:02; Status DC Warfarin Sodium (Coumadin) 6 mg 1X WARF ONCE PO Last administered on 02/23/21at 17:54; Start 02/23/21 at 16:00; Stop 02/23/21 at 16:01; Status DC Warfarin Sodium (Coumadin) 5 mg 1X WARF ONCE PO ; Start 02/24/21 at 16:00; Stop 02/24/21 at 16:01 Active Scripts Active Miralax (Polyethylene Glycol 3350) 17 Gm Powd.pack 1 Packet PO DAILY Reported Clopidogrel (Clopidogrel Bisulfate) 75 Mg Tablet 1 Tab PO DAILY Novolin R Flexpen (Insulin Regular, Human) 100 Unit/1 Ml Insuln.pen 0 SQ PRN BFRMEAL PRN Novolin N (Nph, Human Insulin Isophane) 100 Unit/1 Ml Vial 8 Unit SQ HS Metformin Hcl 1,000 Mg Tablet 1,000 Mg PO BIDWMEALS Clonazepam 1 Mg Tablet 0.5 Mg PO PRN BID PRN Gabapentin 600 Mg Tablet 300 Mg PO BID Warfarin Sodium 3 Mg Tablet 3 Mg PO UD Trelegy Ellipta 100-62.5-25 (Fluticasone/Umeclidin/Vilanter) 1 Each Blst.w.dev 1 Each IH DAILY Proair Hfa Inhaler (Albuterol Sulfate) 8.5 Gm Hfa.aer.ad 2 Puff IH PRN Q4-6HRS PRN 21 Days Warfarin Sodium 3 Mg Tablet 4 Mg PO QMONFR Klor-Con 10 (Potassium Chloride) 10 Meq Tablet.er 1 Tab PO DAILY 30 Days Metoprolol Succinate ( Xl ) (Metoprolol Succinate) 100 Mg Tab.er.24h 1.5 Tab PO DAILY Furosemide 40 Mg Tablet 1 Tab PO DAILY Atorvastatin Calcium 20 Mg Tablet 20 Mg PO HS Eucerin Eczema Relief (Colloidal Oatmeal) 226 Gm Cream..g. 1 Yocasta TP DAILY 30 Days Vitals/I & O Vital Sign - Last 24 Hours 02/23/21 02/23/21 02/23/21 02/23/21 13:28 15:44 16:51 19:30 Temp 97.6 97.8 97.6 97.8 Pulse 129 125 115 Resp 22 18 B/P (MAP) 143/79 (100) 173/93 (119) Pulse Ox 98 91 97 O2 Delivery Room Air Room Air Room Air 02/23/21 02/23/21 02/23/21 02/23/21 19:57 20:00 21:17 23:15 Temp 97.7 97.7 Pulse 115 112 Resp 18 B/P (MAP) 173/93 131/82 (98) Pulse Ox 98 98 O2 Delivery Room Air Room Air Room Air 02/24/21 02/24/21 02/24/21 02/24/21 03:30 06:19 06:44 07:50 Temp 97.7 98.1 97.7 98.1 Pulse 103 117 Resp 18 20 B/P (MAP) 120/69 (86) 115/74 (88) Pulse Ox 98 98 97 O2 Delivery Room Air Room Air Room Air Room Air 02/24/21 02/24/21 02/24/21 02/24/21 08:18 08:18 10:53 11:00 Temp 96.6 96.6 Pulse 117 117 103 Resp 20 B/P (MAP) 115/74 115/74 153/81 (105) Pulse Ox 96 96 O2 Delivery Room Air Room Air Intake and Output 02/23/21 02/23/21 02/24/21 15:00 23:00 07:00 Intake Total 350 ml 900 ml 200 ml Output Total 600 ml Balance 350 ml 900 ml -400 ml Justifications for Admission Other Justification New Afib with RVR, CAP BALDO CAM MD Feb 24, 2021 12:50
--- NOTE | 2021-02-24 14:54 | NUR ---
Pharmacy Warfarin Dosing Note S:Pharmacy consulted to assist with anticoagulation therapy started with target INR: 2 -3 O:MIHIR LOVELACE is a 65 year old M with Atrial Fibrillation LABS: Last INR: 2.0 Last HGB: Last HCT: Last PLT: Last dose of 6 mg given on 02/23/21 at Previous Regimen: Vitamin K given: N Drug Interaction Changes: Ongoing Drug Interactions: A:INR of 2.40 is desired range. Target range for this patient is: 2 -3 P: Warfarin dose: 5 mg Today at 1600 [facility] Therapy: Next INR due IN AM Pharmacy anticoagulation service will continue to follow. GUNNAR SHAFER FORMERLY [facility], 02/24/21 [id number]
[2021-02-24 15:00] VITALS: BP 119/82
[2021-02-24] MEDS ORDERED: WARFARIN 5 MG TABLET. PO ONE (16:00)
[2021-02-24] MEDS: cefTRIAXone IV Push 1 GM VIAL. IVP SCH (17:52)
[2021-02-24 19:30] VITALS: BP 140/87
[2021-02-24] MEDS: ATORVASTATIN CALCIUM 20 MG TABLET PO SCH (21:26)
[2021-02-24] MEDS: INSULIN GLARGINE SYRINGE. SQ SCH (21:32)
[2021-02-24 22:50] VITALS: BP 151/82
[2021-02-25 03:00] VITALS: BP_SYST 108; BP_SYST 124; BP_DIAS 75; BP_DIAS 77
[2021-02-25 04:42] LABS: HEMATOCRIT 39.8 % (39.0-53.0); HEMOGLOBIN 13.5 g/dL (13.0-17.5); RED BLOOD COUNT 4.19 x10^6/uL (4.30-5.70); RED CELL DISTRIBUTION WIDTH 15.2 % (11.5-14.5); WHITE BLOOD COUNT 7.6 x10^3/uL (4.0-11.0)
[2021-02-25 04:54] LABS: PROTHROMBIN TIME PATIENT 25.8 SEC (11.7-14.0)
[2021-02-25 05:11] LABS: ALBUMIN 3.4 g/dL (3.4-5.0); ALBUMIN/GLOBULIN RATIO 1.1 (1.0-1.7); CREATININE 0.8 mg/dL (0.7-1.3); GFR 97.6; POTASSIUM 4.3 mmol/L (3.5-5.1); TOTAL BILIRUBIN 0.7 mg/dL (0.2-1.0); TOTAL PROTEIN 6.5 g/dL (6.4-8.2)
[2021-02-25 07:00] VITALS: BP 132/73
[2021-02-25] MEDS: BUDESONIDE 0.5 MG/2 ML NEBU. NEB SCH ×2 (07:14→20:26)
[2021-02-25] MEDS: IPRATRPIUM/ALBUTEROL 0.5/2.5MG 3 ML NEBU. NEB SCH ×4 (07:14→20:26)
[2021-02-25] MEDS: INSULIN LISPRO 300 UNITS/3 ML VIAL. SQ SCH ×3 (07:59→17:00)
[2021-02-25] MEDS: GABAPENTIN 300 MG CAPSULE. PO SCH ×3 (08:31→22:40)
[2021-02-25] MEDS: NICOTINE 21MG PATCH. TD SCH (08:31)
[2021-02-25] MEDS: AZITHROMYCIN 250 MG TABLET. PO SCH (08:31)
[2021-02-25] MEDS: DIGOXIN 125 MCG TABLET. PO SCH (08:32)
[2021-02-25] MEDS: metFORMIN 500 MG TABLET PO SCH ×2 (08:32→16:31)
[2021-02-25] MEDS: AMIODARONE HCL 200 MG TABLET. PO SCH (08:33)
[2021-02-25] MEDS: POTASSIUM CHLORIDE 10 MEQ TABLET.ER. PO SCH (08:33)
[2021-02-25] MEDS: CLOPIDOGREL BISULFATE 75 MG TABLET PO SCH (08:33)
[2021-02-25] MEDS: LACTOBACILLUS RHAMNOSUS GG 1 CAPSULE. PO SCH ×2 (08:38→22:40)
--- NOTE | 2021-02-25 10:43 | PDOC ---
MICHELE CHAUHAN HERBARIUM WORKER 02/25/21 1043: CARDIO Progress Notes Date and Time Date of Service 02/25/21 Time of Evaluation 1040 Subjective Subjective: No Chest Pain, No shortness of breath, No Palpitations Vitals Vitals Vital Signs Date Time Temp Pulse Resp B/P (MAP) Pulse Ox O2 Delivery O2 Flow Rate FiO2 02/25/21 08:33 113 132/73 02/25/21 07:16 96 Room Air 02/25/21 07:00 97.3 18 97.3 Weight Weight [ ] Input and Output Intake and Output Intake and Output 02/25/21 06:59 Intake Total 900 ml Balance 900 ml Intake Oral 900 ml # Voids 3 Laboratory Labs Laboratory Tests Test 02/24/21 11:45 02/24/21 16:20 02/24/21 21:24 02/25/21 04:30 Glucose (Fingerstick) 149 mg/dL (70-99) 101 mg/dL (70-99) 82 mg/dL (70-99) White Blood Count 7.6 x10^3/uL (4.0-11.0) Red Blood Count 4.19 x10^6/uL (4.30-5.70) Hemoglobin 13.5 g/dL (13.0-17.5) Hematocrit 39.8 % (39.0-53.0) Mean Corpuscular Volume 95 fL (79-100) Mean Corpuscular Hemoglobin 32 pg (25-35) Mean Corpuscular Hemoglobin Concent 34 g/dL (31-37) Red Cell Distribution Width 15.2 % (11.5-14.5) Platelet Count 155 x10^3/uL (140-400) Prothrombin Time 25.8 SEC (11.7-14.0) Prothromb Time International Ratio 2.4 (0.8-1.1) Sodium Level 140 mmol/L (136-145) Potassium Level 4.3 mmol/L (3.5-5.1) Chloride Level 103 mmol/L (98-107) Carbon Dioxide Level 29 mmol/L (21-32) Anion Gap 8 (6-14) Blood Urea Nitrogen 11 mg/dL (8-26) Creatinine 0.8 mg/dL (0.7-1.3) Estimated GFR (Cockcroft-Gault) 97.6 BUN/Creatinine Ratio 14 (6-20) Glucose Level 106 mg/dL (70-99) Calcium Level 9.0 mg/dL (8.5-10.1) Total Bilirubin 0.7 mg/dL (0.2-1.0) Aspartate Amino Transf (AST/SGOT) 12 U/L (15-37) Alanine Aminotransferase (ALT/SGPT) 20 U/L (16-63) Alkaline Phosphatase 106 U/L (46-116) Total Protein 6.5 g/dL (6.4-8.2) Albumin 3.4 g/dL (3.4-5.0) Albumin/Globulin Ratio 1.1 (1.0-1.7) Thyroid Stimulating Hormone (TSH) 2.833 uIU/mL (0.358-3.74) Test 02/25/21 07:55 Glucose (Fingerstick) 108 mg/dL (70-99) Physical Exam HEENT: Neck Supple W Full Motion Chest: Symmetric LUNGS: Clear to Auscultation Heart: irregularly irregular (AFIB, rate 115) Abdomen: Soft N/T Extremities: No Edema Neurology: alert, oriented, follow commands Assessment Assessment 1. Encephalopathy; hypoperfusion in the setting of significant hypotension likely contributing. resolved 2. H/o hypertension presenting with hypotension; s/p IVFs. etiology unclear. BC negative. now improved 3. AFIB; intermittent RVR. Metoprolol held due to hypotension. Dig and amiodarone initiated. Rate better controlled, but remains intermittently elevated. On warfarin for stroke prophylaxis. INR 2.4 4. CAD, nonobstructive per cath 10/24 as noted above 5. NICM; Echo with LVEF 30-35% per echo 09/24 6. Chronic systolic CHF; appear compensated 7. Hyperlipidemia; statin 8. Diabetes, II 10. 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 12. MAMIE, COPD with continued tobaccoism. discussed/encouraged cessation Recommendations Continue Digoxin Resume low-dose metoprolol. Convert to Toprol if BP allows. Secondary prevention including statin and Plavix. No ASA as patient is on warfarin No CHARMAINE/ARB for now. Will allow room for resumption of BB therapy Consider outpatient CVN versus referral to EP for possible ablation Outpatient echo to reassess LV systolic function, assess need for AICD for primary prevention of SCD. Supportive care Patient has follow up scheduled with Dr. Steiner 03/21/21 at 10:15am at [facility] Justicifation of Admission Dx: Justifications for Admission: Justification of Admission Dx: Yes JESÚS STEINER MD 02/26/21 0746: CARDIO Progress Notes Assessment Assessment Patient seen and examined 02/25/2021. Agree with CASH RECONCILIATION SPECIALIST's assessment and plan. Atrial fibrillation rate better controlled. Continue warfarin for stroke prophylaxis. Chronic systolic heart failure clinically well compensated CAD and PAD status clinically stable Plan outpatient cardioversion and repeat 2D echo in 3 months to evaluate the need for AICD implantation MICHELE CHAUHAN APRN Feb 25, 2021 10:43 JESÚS STEINER MD Feb 26, 2021 07:46
--- NOTE | 2021-02-25 10:58 | PN ---
DATE: 02/25/2021 SUBJECTIVE: The patient is sitting at the edge of the bed comfortably, in no apparent distress. On questioning him, he denied any chest pain. However, he continued to complain of shortness of breath on exertion. His heart rate is not yet optimally controlled. However, his blood pressure is much better improved. PHYSICAL EXAMINATION: GENERAL: When I examined him, he looked pale, not jaundiced or cyanosed, no lymphadenopathy, no thyromegaly, no jugular venous distention. No limb edema. VITAL SIGNS: His heart rate was 113, irregularly irregular; however, his blood pressure is 132/73, temperature was 97.3, respiratory rate was 18 and oxygen saturation was 96% on room air. HEAD, EYES, EARS, NOSE AND THROAT: Normocephalic, atraumatic. NECK: Supple. HEART: Normal first and second heart sounds. No gallop, rub or murmur. CHEST: Clear to auscultation, no crepitation or rhonchi. ABDOMEN: Distended, soft, nontender. NEUROLOGIC: He was grossly intact. His intake was 1450 and output was 600. LABORATORY DATA: As of this morning, his white cell count is down to 7600, hemoglobin 13.5, hematocrit 39, MCV 95 and platelet count of 155,000. His chemistry showed serum sodium 140, potassium 4.3, chloride 103, bicarbonate 29, anion gap of 8, BUN 11, creatinine 0.8, estimated GFR was 97 mL per minute, his glucose 106, calcium was 9. Total bilirubin, AST, ALT, alkaline phosphatase were normal. Total protein 6.5, albumin was 3.4. His TSH is normal at 2.833. His blood sugar is much better controlled. ASSESSMENT: 1. Altered mental status, resolved. 2. Hypotension, likely due to sepsis, is improved. His blood pressure today is 130/80. 3. Atrial fibrillation with rapid ventricular respond. He is well anticoagulated. However, his heart rate is suboptimally controlled. 4. Coronary artery disease that is nonobstructive. 5. Nonischemic cardiomyopathy with ejection fraction 30-35%. 6. Chronic systolic congestive heart failure. 7. Hypertension; however, the patient was actually hypotensive. 8. Hyperlipidemia. 9. Type 2 diabetes mellitus that seems to be reasonably controlled. 10. Peripheral arterial disease, status post stent deployment to the left superficial femoral artery. 11. Obstructive sleep apnea. 12. Chronic obstructive pulmonary disease, emphysema and bronchiectasis. 13. Unfortunately, the patient continues to smoke heavily. PLAN: Continue with amiodarone. Continue with digoxin. Continue with Coumadin. Adjust the Coumadin to maintain INR between 2-2.5. Continue with IV antibiotic. Continue with physical and occupational therapy. BENIGNO DR: Joe TID: [id number]
[2021-02-25 11:00] VITALS: BP 161/96
--- NOTE | 2021-02-25 12:13 | NUR ---
Pharmacy Warfarin Dosing Note S: Pharmacy consulted to assist with anticoagulation therapy O: MIHIR LOVELACE is a 65 year old M with Atrial Fibrillation LABS: Last INR: 2.4 Last HGB: 13.5 Last HCT: 39.8 Last PLT: 155 Last dose of 5 mg given on 02/24/21 at 1625 Vitamin K given: N A:INR of 2.4 is within desired range. Target range for this patient is: 2 -3 P: Warfarin dose: 3 mg Today at 1600 Bridge Therapy: none Next INR due tomorrow Pharmacy anticoagulation service will continue to follow. Monika Hamilton [facility], 02/25/21 1215
--- NOTE | 2021-02-25 13:55 | NUR ---
SS following for discharge planning. SS reviewed pt chart and discussed with pt RN. Pt is from home with spouse and is currently on room air. Pt on IV Rocephin. Cardiology consulted. PT/OT ordered. SS will continue to follow for discharge planning.
[2021-02-25] MEDS: clonazePAM 0.5 MG TABLET PO PRN ×2 (14:31→22:40)
[2021-02-25 15:00] VITALS: BP 156/85
[2021-02-25] MEDS ORDERED: WARFARIN 3 MG TABLET. PO ONE (16:00)
[2021-02-25] MEDS: METOPROLOL TART IMMED RELEASE 25 MG TABLET. PO SCH ×2 (16:30→22:39)
[2021-02-25 18:36] VITALS: BP 144/86
[2021-02-25] MEDS: cefTRIAXone IV Push 1 GM VIAL. IVP SCH (19:36)
[2021-02-25 22:14] VITALS: BP 163/71
[2021-02-25] MEDS: ATORVASTATIN CALCIUM 20 MG TABLET PO SCH (22:39)
[2021-02-25] MEDS: INSULIN GLARGINE SYRINGE. SQ SCH (22:47)
[2021-02-26 02:33] VITALS: BP 138/76
[2021-02-26 03:41] LABS: PROTHROMBIN TIME PATIENT 25.4 SEC (11.7-14.0)
[2021-02-26 07:00] VITALS: BP 138/76
[2021-02-26] MEDS: INSULIN LISPRO 300 UNITS/3 ML VIAL. SQ SCH ×2 (08:00→11:39)
[2021-02-26] MEDS: metFORMIN 500 MG TABLET PO SCH (08:18)
[2021-02-26] MEDS: AZITHROMYCIN 250 MG TABLET. PO SCH (08:18)
[2021-02-26] MEDS: METOPROLOL TART IMMED RELEASE 25 MG TABLET. PO SCH (08:18)
[2021-02-26] MEDS: CLOPIDOGREL BISULFATE 75 MG TABLET PO SCH (08:19)
[2021-02-26] MEDS: LACTOBACILLUS RHAMNOSUS GG 1 CAPSULE. PO SCH (08:19)
[2021-02-26] MEDS: GABAPENTIN 300 MG CAPSULE. PO SCH ×2 (08:19→15:43)
[2021-02-26] MEDS: POTASSIUM CHLORIDE 10 MEQ TABLET.ER. PO SCH (08:19)
[2021-02-26] MEDS: DIGOXIN 125 MCG TABLET. PO SCH (08:19)
[2021-02-26] MEDS: NICOTINE 21MG PATCH. TD SCH (08:20)
[2021-02-26] MEDS: IPRATRPIUM/ALBUTEROL 0.5/2.5MG 3 ML NEBU. NEB SCH ×2 (08:49→12:00)
[2021-02-26] MEDS: BUDESONIDE 0.5 MG/2 ML NEBU. NEB SCH (08:49)
--- NOTE | 2021-02-26 08:53 | PDOC ---
MICHELE CHAUAHN RN TEAM LEADER 02/26/21 0853: CARDIO Progress Notes Date and Time Date of Service 02/26/21 Time of Evaluation 1215 Subjective Subjective: No Chest Pain, No shortness of breath, No Palpitations, No Dizziness Vitals Vitals Vital Signs Date Time Temp Pulse Resp B/P (MAP) Pulse Ox O2 Delivery O2 Flow Rate FiO2 02/26/21 08:19 78 138/76 02/26/21 07:00 97.9 18 95 Room Air 97.9 Weight Weight [ ] Input and Output Intake and Output Intake and Output 02/26/21 07:00 Intake Total 1200 ml Balance 1200 ml Intake Oral 1200 ml # Voids 2 Laboratory Labs Laboratory Tests Test 02/25/21 11:37 02/25/21 17:00 02/25/21 20:09 02/26/21 03:05 Glucose (Fingerstick) 86 mg/dL (70-99) 96 mg/dL (70-99) 130 mg/dL (70-99) Prothrombin Time 25.4 SEC (11.7-14.0) Prothromb Time International Ratio 2.4 (0.8-1.1) Test 02/26/21 07:46 Glucose (Fingerstick) 103 mg/dL (70-99) Physical Exam HEENT: Neck Supple W Full Motion Chest: Symmetric LUNGS: Clear to Auscultation Heart: RRR Abdomen: Soft N/T Extremities: No Edema Neurology: alert, oriented, follow commands Assessment Assessment 1. Encephalopathy; hypoperfusion in the setting of significant hypotension likely contributing. resolved 2. H/o hypertension presenting with hypotension; s/p IVFs. etiology unclear. BC negative. now improved 3. AFIB; intermittent RVR. Metoprolol held due to hypotension. Dig and amiodarone initiated. rate now well controlled resumption of BB therapy. appears to be SR on telemetry 4. CAD, nonobstructive per cath 10/24 as noted above 5. NICM; Echo with LVEF 30-35% per echo 09/24 6. Chronic systolic CHF; appear compensated 7. Hyperlipidemia; statin 8. Diabetes, II 10. PAD LODGE OFFICER/stents to long FORESTRY SCIENTIST of the left SFA. 12. MAMIE, COPD with continued tobaccoism. discussed/encouraged cessation Recommendations EKG now Continue Digoxin, metoprolol for rate control. Convert metoprolol tartrate to succinate. Continue amiodarone Warfarin for stroke prophylaxis Secondary prevention including statin and Plavix. No ASA as patient is on warfarin Resume low-dose losartan Plan outpatient echo to reassess LV systolic function, assess need for AICD for primary prevention of SCD. Supportive care Follow up in our office with Dr. Steiner as scheduled. Justicifation of Admission Dx: Justifications for Admission: Justification of Admission Dx: Yes JESÚS STEINER MD 02/27/21 0759: CARDIO Progress Notes Assessment Assessment Patient seen and examined 02/26/2021. Agree with COUNTER CASER's assessment and plan. Atrial fibrillation presently back in sinus rhythm. Continue warfarin for stroke prophylaxis. Chronic systolic heart failure clinically well compensated CAD and PAD status clinically stable Plan 2D echo as an outpatient to evaluate the need for AICD implantation. MICHELE CHAUHAN APRN Feb 26, 2021 08:53 JESÚS STEINER MD Feb 27, 2021 07:59
[2021-02-26] MEDS ORDERED: AMIODARONE HCL 200 MG TABLET. PO SCH (09:00)
[2021-02-26] MEDS ORDERED: LOSARTAN POTASSIUM 25 MG TABLET. PO SCH (09:00)
--- NOTE | 2021-02-26 10:09 | NUR ---
SS following up with discharge planning. SS reviewed pt chart and discussed with pt RN. Pt is currently on room air. Pt on IV Rocephin. No PT needs. Discharge plan is currently to home when medically ready for discharge. SS will continue to follow for discharge planning.
[2021-02-26 11:00] VITALS: BP 141/78
[2021-02-26] MEDS ORDERED: LOSA25TA PO (11:29)
[2021-02-26] MEDS ORDERED: METO-239 PO (11:29)
[2021-02-26] MEDS ORDERED: DIGO250T3 PO (11:29)
[2021-02-26] MEDS ORDERED: AMIO200T53 PO (11:29)
[2021-02-26] MEDS ORDERED: BUDE0.5A3 NEB (11:29)
[2021-02-26] MEDS ORDERED: CLON-77 PO (11:31)
[2021-02-26] MEDS ORDERED: WARF3TAB50 PO (11:31)
--- NOTE | 2021-02-26 12:43 | NUR ---
Pharmacy Warfarin Dosing Note S: Pharmacy consulted to assist with anticoagulation therapy O: MIHIR LOVELACE is a 65 year old M with Atrial Fibrillation LABS: Last INR: 2.4 Last HGB: 13.5 Last HCT: 39.8 Last PLT: 155 Last dose of 3 mg given on 02/25/21 at 1631 Vitamin K given: N Ongoing Drug Interactions: amiodarone, azithromycin (last dose today) A:INR of 2.4 is within desired range. Target range for this patient is: 2 - 3 P: Warfarin dose: 3 mg Today at 1600 Next INR due 02/27/21 Pharmacy anticoagulation service will continue to follow. MILES KAUR [facility], 02/26/21 1962
[2021-02-26] MEDS ORDERED: METO50TA4 PO (14:31)
--- NOTE | 2021-02-26 14:50 | EKG ---
[facility] [address] [place] [address] Test Date: 2021-02-26 Test Time: 14:47:13 Pat Name: MIHIR LOVELACE Department: Room: 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
[2021-02-26 14:57] VITALS: BP 152/76
[2021-02-26] MEDS: clonazePAM 0.5 MG TABLET PO PRN (15:42)
--- NOTE | 2021-02-26 15:54 | NUR ---
Discharge Note: MIHIR LOVELACE [facility] Discharge instructions and discharge home medications reviewed with Patient and a copy given. All questions have been answered and understanding verbalized. The following instructions and handouts were given: chest pain, amiodarone, digoxin, heart failure, a-fib, hypotension Patient educated on importance of smoking cessation and to check blood pressure before taking any blood pressure medications. Patient verbalized understanding IV discontinued, no complications Patient discharged to home with self care. All belongings taken home with patient.
[2021-02-26] MEDS ORDERED: WARFARIN 3 MG TABLET. PO ONE (16:00)
== END 2021-02-26 15:50 | disposition home or self-care (01) | DRG 315 ==
LOC: 6 SOUTH 18:10
PROVIDERS: ADMIT Internal Medicine; ATTEND Internal Medicine
DX: I95.9 Hypotension, unspecified (principal); G93.40 Encephalopathy, unspecified; I42.8 Other cardiomyopathies; I50.22 Chronic systolic (congestive) heart failure; E11.51 Type 2 diabetes mellitus with diabetic peripheral angiopathy without gangrene; E78.5 Hyperlipidemia, unspecified; F17.210 Nicotine dependence, cigarettes, uncomplicated; G47.33 Obstructive sleep apnea (adult) (pediatric); I11.0 Hypertensive heart disease with heart failure; I25.10 Atherosclerotic heart disease of native coronary artery without angina pectoris; I48.91 Unspecified atrial fibrillation; J43.9 Emphysema, unspecified; J47.9 Bronchiectasis, uncomplicated; Z82.49 Family history of ischemic heart disease and other diseases of the circulatory system; Z95.820 Peripheral vascular angioplasty status with implants and grafts; Z71.6 Tobacco abuse counseling
CPT/HCPCS: 36415; 80053; 80162; 82962; 84443; 85025; 85027; 85610; 93005; 94640; 94760; 99406; J0282; J0696; J1815; J7060; G0378; J7626

== ENCOUNTER → 2021-03-12 | Outpatient (CLI) | payer MEDICARE ==
[2021-02-26 14:57] VITALS: BP 152/76
[~2021-03-12] MED LIST changes: +AMIO200T53 PO; +BUDE0.5A3 NEB; +CLON-77 PO; +DIGO250T3 PO; +METO-239 PO; +METO50TA4 PO
--- NOTE | 2021-03-13 11:56 | CARD ---
MR#: [id number] Date of Study: 03/12/2021 Ordering Physician: JESÚS ALVARADO, Referring Physician: JESÚS ALVARADO, Tech: Julianne Liriano [facility] APPROVED REPORT EXAM: Two-dimensional and M-mode echocardiogram with Doppler and color Doppler. Other Information Quality : AverageHR: 84bpm INDICATION Congestive Heart Failure RISK FACTORS Hypertension Hyperlipidemia Diabetes Smoking 2D DIMENSIONS RVDd3.5 (2.9-3.5cm)Left Atrium(2D)3.8 (1.6-4.0cm) IVSd1.2 (0.7-1.1cm)Aortic Root(2D)4.3 (2.0-3.7cm) LVDd4.7 (3.9-5.9cm)LVOT Diameter2.2 (1.8-2.4cm) PWd1.2 (0.7-1.1cm)LVDs3.3 (2.5-4.0cm) FS (%) 30.3 %SV59.9 ml LVEF(%)57.5 (>50%) Aortic Valve AoV Peak Evin.106.9cm/sAoV VTI17.0cm AO Peak GR.4.6mmHgLVOT Peak Evin.84.3cm/s LVOT VTI 14.37cmAO Mean GR.2mmHg MIGDALIA (VMAX)2.81jb5YJR (VTI)3.23cm2 AI P 1/2 Dnwz774je Mitral Valve MV E Uchocjhz629.2cm/sMV DECEL FLFT102an MV A Xogefcvb43.4cm/sMV E Mean Gr.2mmHg MV EDG36hcB/A Ratio4.2 MVA (PHT)4.05cm2 TDI E/Lateral E'10.0E/Medial E'11.8 Pulmonary Valve PV Peak Qguzgxmn20.9cm/sPV Peak Grad.3mmHg Tricuspid Valve TR P. Yqhxfody711bu/sRAP YBQEBKAN9kvBu TR Peak Gr.15lsOsSZTN34xpBp LEFT VENTRICLE The left ventricle is normal size. There is mild concentric left ventricular hypertrophy. The systoli c function is mildly decreased. EF 45-50% Wall motion consistent with conduction abnormality. Otherwi se, mild global hypokinesis. Tissue Doppler imaging reveals moderate left ventricular diastolic dysfu nction. RIGHT VENTRICLE The right ventricle is mildly dilated. There is normal right ventricular wall thickness. The right ve ntricular systolic function is normal. ATRIA The left atrium size is normal. The right atrium is mildly dilated. The interatrial septum is intact with no evidence for an atrial septal defect or patent foramen ovale as noted on 2-D or Doppler imagi ng. AORTIC VALVE The aortic valve is normal in structure and function. Doppler and Color Flow revealedmild aortic regu rgitation. There is no significant aortic valvular stenosis. Calculated aortic valve area is 2.12 cm2 with maximum pressure gradient of 6 mmHg and mean pressure gradient of 3 mmHg. MITRAL VALVE The mitral valve is normal in structure and function. There is no evidence of mitral valve prolapse. There is no mitral valve stenosis. Doppler and Color-flow revealed trace mitral regurgitation. TRICUSPID VALVE The tricuspid valve is normal in structure and function. Doppler and Color Flow revealed trace tricus pid regurgitation with an estimated PAP of 32 mmHg. There is no tricuspid valve stenosis. PULMONIC VALVE The pulmonic valve is not well visualized. Doppler and Color Flow revealed trace pulmonic valvular re gurgitation. There is no pulmonic valvular stenosis. GREAT VESSELS The aortic root is mildly enlarged measuring 4.34 cm. The IVC is normal in size and collapses >50% wi th inspiration. PERICARDIAL EFFUSION There is no evidence of significant pericardial effusion. Critical Notification Critical Value: No <Conclusion> The systolic function is mildly decreased. EF 45-50% Wall motion consistent with conduction abnormality. Otherwise, mild global hypokinesis. The aortic root is mildly enlarged measuring 4.34 cm. Signed by : Kt Deutsch, Electronically Approved : 03/13/2021 11:56:28
== END ==
LOC: ECHO 09:43
PROVIDERS: ATTEND Internal Medicine Cardiovascular Disease
DX: I35.1 Nonrheumatic aortic (valve) insufficiency (principal); I51.7 Cardiomegaly; I77.819 Aortic ectasia, unspecified site; I42.9 Cardiomyopathy, unspecified
CPT/HCPCS: 93306

== ENCOUNTER → 2021-05-22 | Outpatient (CLI) | payer MEDICARE ==
--- NOTE | 2021-05-22 16:47 | RAD ---
MR#: [id number] Date of Study: 05/22/2021 Ordering Physician: JESÚS ALVARADO, Referring Physician: JESÚS ALVARADO, Tech: Kee Gray MBA, RDMS, RVT, RDCS, RTR APPROVED REPORT Patient Location : OUT-PATIENT Indications VENOUS INSUFFICIENCY Greater Saphenous Veins (GSV) Significant venous relux noted in the RIGHT GSV at the following levels : Proximal Thigh, Mid Thigh, Distal Thigh, Proximal Calf, Mid Calf, Distal Calf Significant venous relux noted in the LEFT GSV at the following levels : Proximal Thigh, Mid Thigh, D istal Thigh, Proximal Calf, Mid Calf, Distal Calf Lesser Saphenous Veins (LSV) Significant venous reflux is noted in the Bilateral LSV. Findings Limited grayscale images the bilateral saphenofemoral junctions are grossly unremarkable. The right great saphenous measures 4.5 mm and has no significant reflux. The left great saphenous ve in measures 4.1 mm and has no significant reflux. The right lesser saphenous vein measures 3.6 mm and has a maximum reflux time of 3.5 seconds. The le ft lesser saphenous vein measures 2.9 mm and has a maximum reflux time of 3.3 seconds. Critical Notification Critical Value: No <Conclusion> 1. Negative for reflux in the bilateral greater saphenous veins 2. POSITIVE for reflux in the bilateral LESSER saphenous veins. Signed by : Kt Deutsch, Electronically Approved : 05/22/2021 16:46:45
== END ==
LOC: US 12:20
PROVIDERS: ATTEND Internal Medicine Cardiovascular Disease
DX: I87.2 Venous insufficiency (chronic) (peripheral) (principal)
CPT/HCPCS: 93970

== ENCOUNTER 2021-05-31 10:55 | Day surgery (SDC) | payer MEDICARE ==
[~2021-05-31] VITALS: Ht 180.3 cm; Wt 77.0 kg
[~2021-05-31 10:55] MED LIST changes: +HYDROmorphone 2 MG/ML INJ. IVP PRN; +IV RINGERS,LACTATED 1000ML 1,000 ML IV SCH; +MORPHINE SULFATE 2 MG/ML INJ. IVP PRN; +PROCHLORPERAZINE 10 MG/2 ML VIAL. IVP PRN; +fentaNYL PF VIAL 100 MCG/2 ML VIAL IVP PRN
[2021-05-31] MEDS ORDERED: INSULIN LISPRO 100 UNIT/ML 3ML VIAL for OP,RR ONLY. SQ PRN (11:15)
[2021-05-31 11:31] VITALS: BP 105/77
[2021-05-31 11:51] LABS: HEMOGLOBIN 15.9 g/dL (13.0-17.5); RED BLOOD COUNT 4.98 x10^6/uL (4.30-5.70); RED CELL DISTRIBUTION WIDTH 14.3 % (11.5-14.5); WHITE BLOOD COUNT 7.5 x10^3/uL (4.0-11.0)
[2021-05-31 11:58] LABS: CALCIUM 8.8 mg/dL (8.5-10.1); CREATININE 1.2 mg/dL (0.7-1.3); GFR 61.1; POTASSIUM 5.1 mmol/L (3.5-5.1)
[2021-05-31 12:06] LABS: PROTHROMBIN TIME PATIENT 19.5 SEC (11.7-14.0)
[2021-05-31] MEDS ORDERED: PROPOFOL 10 MG/ML (20ML) VIAL. IV ONE (12:12)
--- NOTE | 2021-05-31 13:12 | PDOC4 ---
Procedure Note Procedure: External cardioversion Indications: Atrial fibrillation Complications: None Procedural Details: An informed consent was obtained from patient. Patient was given intravenous propofol by anesthesiology team for deep sedation. He was then administered 200 J of synchronized biphasic DC shock therapy with successful conversion of patient rhythm from atrial fibrillation to sinus rhythm. He was hemodynamically stable without any neurological deficits at the end of procedure. He tolerated the procedure well. Conclusions: Successful cardioversion of atrial fibrillation to sinus rhythm. JESÚS ALVARADO MD May 31, 2021 13:12
--- NOTE | 2021-05-31 13:21 | EKG ---
[facility] [address] [place] [address] Test Date: 2021-05-31 Test Time: 13:16:39 Pat Name: MIHIR LOVELACE Department: Room: Gender: M Outpatient Physical Therapist Assistant: GARLAND : 1955 Requested By: JESÚS ALVARADO Order Number: [id number] Reading MD: Measurements Intervals [place] Rate: 60 P: 62 NE: 280 QRS: 60 QRSD: 82 T: 49 QT: 370 QTc: 370 Interpretive Statements SINUS RHYTHM PROLONGED NE INTERVAL ABNORMAL ECG RI6.02 Compared to ECG 02/26/2021 14:47:13 First degree AV block now present
[2021-05-31 13:30] VITALS: BP 146/78
== END 2021-05-31 13:33 | disposition home or self-care (01) ==
LOC: SURG 10:55
PROVIDERS: ATTEND Internal Medicine Cardiovascular Disease
DX: I48.91 Unspecified atrial fibrillation (principal); I11.0 Hypertensive heart disease with heart failure; I50.9 Heart failure, unspecified; E78.00 Pure hypercholesterolemia, unspecified; J43.9 Emphysema, unspecified; E11.9 Type 2 diabetes mellitus without complications; G47.30 Sleep apnea, unspecified; F41.9 Anxiety disorder, unspecified; F32.9 Major depressive disorder, single episode, unspecified; M19.90 Unspecified osteoarthritis, unspecified site; Z86.73 Personal history of transient ischemic attack (TIA), and cerebral infarction without residual deficits; F17.210 Nicotine dependence, cigarettes, uncomplicated; Z79.84 Long term (current) use of oral hypoglycemic drugs; Z79.899 Other long term (current) drug therapy; Z98.890 Other specified postprocedural states
CPT/HCPCS: 36415; 80048; 82962; 85027; 85610; 85730; 92960; 93005; J2704